=== PATIENT | female | born 1985 | race Caucasian/White ===

== ENCOUNTER 2017-06-09 15:48 | Emergency (ER) | payer BC ==
[~2017-06-09] VITALS: Ht 175.3 cm; Wt 100.0 kg
[~2017-06-09 15:48] MED LIST: ALBU6.7H INH; DULO-31 PO; NORE-58 PO; TRAZ-146 PO
[2017-06-09] MEDS ORDERED: dexamethasone 4mg tablet PO ONE (18:45)
[2017-06-09] MEDS ORDERED: DEC4T PO (19:48)
[2017-06-09 19:57] VITALS: BP 130/88
== END 2017-06-09 19:58 | disposition home or self-care (01) ==
LOC: ER 15:50
DX: J06.9 Acute upper respiratory infection, unspecified (principal); I25.2 Old myocardial infarction; Z90.49 Acquired absence of other specified parts of digestive tract; Z98.890 Other specified postprocedural states; Z88.0 Allergy status to penicillin; Z88.2 Allergy status to sulfonamides; Z88.1 Allergy status to other antibiotic agents
CPT/HCPCS: 87502; 87503; 99284; J8540

== ENCOUNTER 2017-11-09 18:21 | Emergency (ER) | payer BC ==
[~2017-11-09] VITALS: Ht 597.6 cm; Wt 112.8 kg
[2017-11-09] MEDS ORDERED: DOXY100C43 PO (19:50)
[2017-11-09 19:58] VITALS: BP 133/80
[2017-11-13] MEDS ORDERED: PROC25SU31 RC (21:34)
== END 2017-11-09 20:01 | disposition home or self-care (01) ==
LOC: ER 18:22
DX: L03.311 Cellulitis of abdominal wall (principal); Z90.49 Acquired absence of other specified parts of digestive tract; Z98.890 Other specified postprocedural states; Z88.0 Allergy status to penicillin; Z91.040 Latex allergy status; Z88.1 Allergy status to other antibiotic agents; Z88.2 Allergy status to sulfonamides; Z79.899 Other long term (current) drug therapy
CPT/HCPCS: 99283

== ENCOUNTER 2017-11-11 07:15 | Emergency (ER) | payer BC ==
[~2017-11-11] VITALS: Ht 175.3 cm; Wt 111.3 kg
[~2017-11-11 07:15] MED LIST changes: +DOXY100C43 PO
[2017-11-11] MEDS ORDERED: LIDOcaine 1.5% w/epinephrine 1:200,000 5ml ampul IJ ONE (08:05)
[2017-11-11] MEDS ORDERED: vancomycin/NS 1 GM ADD-VANTAGE 250 ML IV ONE (08:05)
[2017-11-11] MEDS ORDERED: levoFLOXACIN-Levaquin 750MG/D5 150 ML IV ONE (08:05)
[2017-11-11] MEDS ORDERED: ondansetron/PF 4mg/2ml inj IV ONE (08:05)
[2017-11-11] MEDS ORDERED: normal saline 1000ML IV soln IVB ONE (08:05)
[2017-11-11 09:01] LABS: BASOPHILS % (AUTO) 0.3 % (0-1); EOSINOPHILS # (AUTO) 0.2 X10'3 (0-0.9); EOSINOPHILS % (AUTO) 2.4 % (0-6); HEMATOCRIT 34.2 % (35.0-45.0); HEMOGLOBIN 11.4 g/dl (12.0-16.0); LYMPHOCYTES # (AUTO) 1.6 X10'3 (1.1-4.8); LYMPHOCYTES % (AUTO) 17.1 % (21-51); MEAN CORPUSCULAR HEMOGLOBIN 27.5 PG (27.0-31.0); MEAN CORPUSCULAR HGB CONC 33.3 % (33.0-36.5); MEAN CORPUSCULAR VOLUME 82.6 FL (78-98); MEAN PLATELET VOLUME 7.7 FL (7.4-10.4); MONOCYTES # (AUTO) 0.5 X10'3 (0-0.9); MONOCYTES % (AUTO) 5.3 % (2-12); NEUTROPHILS # (AUTO) 6.9 X10'3 (1.8-7.7); NEUTROPHILS % (AUTO) 74.9 % (42-75); PLATELET COUNT 275 X10'3 (140-440); RED BLOOD COUNT 4.14 X10'6 (4.20-5.60); RED CELL DISTRIBUTION WIDTH 14.3 % (11.5-14.5); WHITE BLOOD COUNT 9.2 X10'3 (4.5-11.0)
[2017-11-11] MEDS: morphine 4 MG/ML inj SYRINge IV PRN ×2 (09:18→10:20)
[2017-11-11 09:28] LABS: ALANINE AMINOTRANSFERASE 26 U/L (12-78); ALBUMIN/GLOBULIN RATIO 0.7 (1.1-1.5); ALKALINE PHOSPHATASE 99 IU/L (46-116); ANION GAP 10 (8-16); ASPARTATE AMINO TRANSFERASE 13 U/L (10-37); BILIRUBIN,TOTAL 0.3 MG/DL (0.1-1.0); BLOOD UREA NITROGEN 12 MG/DL (7-18); BUN/CREATININE RATIO 14.6 (6.6-38.0); CALCIUM 8.6 MG/DL (8.5-10.1); CHLORIDE 107 MMOL/L (99-107); CREATININE 0.82 MG/DL (0.40-0.90); GLUCOSE 98 MG/DL (70-104); POTASSIUM 3.9 MMOL/L (3.5-5.1); SODIUM 140 MMOL/L (135-145); TOTAL CARBON DIOXIDE 23.3 MMOL/L (24-32); TOTAL PROTEIN 7.3 G/DL (6.4-8.2); eGFR 80 ML/MIN
[2017-11-11] MEDS ORDERED: morphine 4 MG/ML inj SYRINge IV ONE (10:25)
[2017-11-11] MEDS ORDERED: HYDR-565 PO (11:32)
[2017-11-11] MEDS ORDERED: RIFA300C4 PO (11:32)
[2017-11-11] MEDS ORDERED: HYDROcodone/acetaminophen 10/325mg tab PO ONE (11:35)
[2017-11-11 12:58] VITALS: BP 116/72
[2017-11-13] MEDS ORDERED: PROC25SU31 RC (21:34)
== END 2017-11-11 13:00 | disposition home or self-care (01) ==
LOC: ER 07:15
DX: L02.211 Cutaneous abscess of abdominal wall (principal); L03.311 Cellulitis of abdominal wall; Z90.49 Acquired absence of other specified parts of digestive tract; Z98.890 Other specified postprocedural states; Z90.89 Acquired absence of other organs; Z88.0 Allergy status to penicillin; Z88.2 Allergy status to sulfonamides; Z88.8 Allergy status to other drugs, medicaments and biological substances; Z91.040 Latex allergy status; Z79.899 Other long term (current) drug therapy
CPT/HCPCS: 10060; 36415; 80053; 83605; 84145; 85025; 87040; 96365; 96366; 96367; 96375; 96376; 99285; A6266; A6449; J1956; J2270; J2405; J3370; J3490; J7030

== ENCOUNTER 2018-03-11 13:45 | Emergency (ER) | payer MEDICAID, OTHER ==
[~2018-03-11] VITALS: Ht 175.3 cm; Wt 104.0 kg
[~2018-03-11 13:45] MED LIST changes: -DOXY100C43 PO; +RIFA300C4 PO; -TRAZ-146 PO; +TRAZ-219 PO
[2018-03-11 13:48] VITALS: BP 135/89
[2018-03-11] MEDS ORDERED: CLIN150C8 PO (14:31)
== END 2018-03-11 14:50 | disposition home or self-care (01) ==
LOC: ER 13:46
DX: J02.9 Acute pharyngitis, unspecified (principal); R13.10 Dysphagia, unspecified; H92.03 Otalgia, bilateral; Z90.49 Acquired absence of other specified parts of digestive tract; Z88.0 Allergy status to penicillin; Z88.2 Allergy status to sulfonamides; Z88.1 Allergy status to other antibiotic agents; Z91.040 Latex allergy status
CPT/HCPCS: 87880; 99283

== ENCOUNTER 2018-11-23 19:06 | Emergency (ER) | payer MEDICAID ==
[~2018-11-23] VITALS: Ht 175.3 cm; Wt 115.5 kg
[~2018-11-23 19:06] MED LIST changes: -ALBU6.7H INH; +ALBU6.7H9 INH; +CLIN150C8 PO
[2018-11-23 19:44] LABS: BASOPHILS # (AUTO) 0.1 X10'3 (0-0.2); BASOPHILS % (AUTO) 0.8 % (0-1); EOSINOPHILS # (AUTO) 0.1 X10'3 (0-0.9); EOSINOPHILS % (AUTO) 1.3 % (0-6); HEMATOCRIT 36.2 % (35.0-45.0); HEMOGLOBIN 12.1 g/dl (12.0-16.0); LYMPHOCYTES # (AUTO) 1.8 X10'3 (1.1-4.8); LYMPHOCYTES % (AUTO) 21.2 % (21-51); MEAN CORPUSCULAR HEMOGLOBIN 27.6 PG (27.0-31.0); MEAN CORPUSCULAR HGB CONC 33.4 g/dL (33.0-36.5); MEAN CORPUSCULAR VOLUME 82.5 FL (78-98); MEAN PLATELET VOLUME 8.1 FL (7.4-10.4); MONOCYTES # (AUTO) 0.4 X10'3 (0-0.9); MONOCYTES % (AUTO) 4.6 % (2-12); NEUTROPHILS # (AUTO) 6.3 X10'3 (1.8-7.7); NEUTROPHILS % (AUTO) 72.1 % (42-75); PLATELET COUNT 319 X10'3 (140-440); RED BLOOD COUNT 4.39 X10'6 (4.20-5.60); RED CELL DISTRIBUTION WIDTH 14.7 % (11.5-14.5); WHITE BLOOD COUNT 8.7 X10'3 (4.5-11.0)
[2018-11-23 19:56] LABS: ALANINE AMINOTRANSFERASE 35 U/L (12-78); ALBUMIN 3.7 G/DL (3.4-5.0); ALBUMIN/GLOBULIN RATIO 0.9 (1.1-1.5); ALKALINE PHOSPHATASE 98 IU/L (46-116); ANION GAP 11 (8-16); ASPARTATE AMINO TRANSFERASE 21 U/L (10-37); BILIRUBIN,TOTAL 0.6 MG/DL (0.1-1.0); BLOOD UREA NITROGEN 13 MG/DL (7-18); BUN/CREATININE RATIO 13.3 (6.6-38.0); CALCIUM 9.1 MG/DL (8.5-10.1); CHLORIDE 112 MMOL/L (99-107); CREATININE 0.98 MG/DL (0.40-0.90); GLUCOSE 91 MG/DL (70-104); POTASSIUM 3.9 MMOL/L (3.5-5.1); SODIUM 145 MMOL/L (135-145); TOTAL CARBON DIOXIDE 21.8 MMOL/L (24-32); TOTAL PROTEIN 7.7 G/DL (6.4-8.2); eGFR 65 ML/MIN
--- NOTE | 2018-11-23 20:00 | NUR ---
The patient is a 33 year old female who presented with a friend/patient advocate 2nd to having suicidal thoughts with a plan to overdose "and drive off a earlene" She reports prior dx of Depression, anxiety, PTSD and BPD. She is a client of [facility] and has had numerous med trials on antidepressants but currently is not taking any medications. She lives with her mother and 12 year old brother. She has been on SDI for anxiety/stress. Reports current stressors is financial and recent ending of a friendship. She is alert, oriented. Psychotic symptoms are not endorced and none were evident during the assessment.
[2018-11-23 20:06] LABS: ETHANOL < 0.010 GM/DL (0.0-0.010)
[2018-11-23 20:27] LABS: URINE HCG NEGATIVE (NEG)
[2018-11-23 20:32] LABS: CLARITY,URINE CLEAR (Clear); COLOR,URINE YELLOW (Yellow); GLUCOSE, URINE NEGATIVE (Neg); KETONES,URINE TRACE mg/dl (Neg); LEUKOCYTE ESTERASE ,URINE NEGATIVE (Neg); NITRITES, URINE NEGATIVE (Neg); OCCULT BLOOD,URINE TRACE-INTACT (Neg); PH,URINE 5.5 (4.8-8.0); PROTEIN,URINE NEGATIVE (Neg); UROBILINOGEN,URINE 0.2 E.U/dL (0.2-1.0)
[2018-11-23 20:34] LABS: UA COLLECTION TYPE VOIDED
[2018-11-23 20:36] LABS: URINE AMPHETAMINE SCREEN NEGATIVE (Neg); URINE BARBITUATE SCREEN NEGATIVE (Neg); URINE BENZODIAZEPINES SCREEN NEGATIVE (Neg); URINE CANNABINOID SCREEN NEGATIVE (Neg); URINE COCAINE SCREEN NEGATIVE (Neg); URINE METHADONE SCREEN NEGATIVE (Neg); URINE OPIATE SCREEN NEGATIVE (Neg); URINE PHENCYCLIDINE SCREEN NEGATIVE (Neg)
[2018-11-23 20:38] LABS: FINE GRANULAR CAST 0-3 /LPF (NEGATIVE); MUCUS STRANDS FEW /LPF (Neg); SQUAMOUS EPITHELIAL CELL,UR MODERATE /LPF (FEW)
[2018-11-23 20:40] LABS: BACTERIA,URINE 1+ /HPF (Neg); RBC,URINE 0-2 /HPF (0-2)
[2018-11-23 20:41] LABS: WBC CLUMPS,URINE FEW /HPF (NEGATIVE)
--- NOTE | 2018-11-23 20:43 | NUR ---
Patrizia Ramsey Patient advocate/friend [phone]
--- NOTE | 2018-11-23 21:34 | NUR ---
The patient is resting on her bed. She is tearful but cooperative.
[2018-11-23] MEDS ORDERED: temazepam 15mg capsule PO ONE (22:15)
[2018-11-23] MEDS: acetaminophen 325mg tablet PO PRN (22:26)
--- NOTE | 2018-11-24 00:04 | NUR ---
[facility] has seen the patient and placed her on a 5150 hold. She appears to be asleep at this time.
--- NOTE | 2018-11-24 02:02 | NUR ---
The patient appears to be sleeping
--- NOTE | 2018-11-24 04:46 | NUR ---
The patient appears to be asleep
[2018-11-24 05:42] VITALS: BP 121/71
--- NOTE | 2018-11-24 10:12 | NUR ---
pt is quietly sitting on side of bed
--- NOTE | 2018-11-24 10:54 | NUR ---
[facility] ([facility]) CALLED FOR INTAKE REPORT. STATES THEY WILL CALL BACK FOR MORE QUESTIONS OR IF PATIENT IS ACCEPTED.
--- NOTE | 2018-11-24 12:03 | NUR ---
pt went to bathroom
[2018-11-24] MEDS ORDERED: LORazepam 1 MG tablet PO ONE (12:05)
[2018-11-24] MEDS: acetaminophen 325mg tablet PO PRN (12:16)
--- NOTE | 2018-11-24 12:32 | NUR ---
C/O HEADACHE WITH NAUSEA. MEDICATED WITH TYLENOL FOR WALL AND ATIVAN FOR ANXIETY. RESTING IN BED.
--- NOTE | 2018-11-24 13:15 | NUR ---
PT IN BATHROOM
--- NOTE | 2018-11-24 13:30 | NUR ---
PT SITTING IN BED CRYING
--- NOTE | 2018-11-24 13:41 | NUR ---
[facility] worker is at bedside with pt
--- NOTE | 2018-11-24 13:43 | NUR ---
PIERCE ([facility]) IS TALKING WITH THE PT BECAUSE THE PT IS FEELING ANXIOUS AND IS ASKING FOR MORE MEDS. SHE IS DISCUSSING THE PLAN AND THE MEDICATION PROCESS WITH THE PT.
--- NOTE | 2018-11-24 14:09 | NUR ---
PT IS SITTING QUIETLY, EATING LUNCH.
--- NOTE | 2018-11-24 15:11 | NUR ---
PATIENT IS ASLEEP.
--- NOTE | 2018-11-24 15:53 | NUR ---
PT APPEARS TO BE SLEEPING
== END 2018-11-24 16:13 ==
LOC: ER 19:07
DX: R45.851 Suicidal ideations (principal); F41.9 Anxiety disorder, unspecified; Z90.49 Acquired absence of other specified parts of digestive tract; Z98.890 Other specified postprocedural states; Z90.721 Acquired absence of ovaries, unilateral; Z88.0 Allergy status to penicillin; Z88.2 Allergy status to sulfonamides; Z91.040 Latex allergy status; Z88.1 Allergy status to other antibiotic agents; Z79.899 Other long term (current) drug therapy
CPT/HCPCS: 36415; 80053; 80305; 80320; 81001; 81025; 84443; 85025; 99285

== ENCOUNTER 2018-12-16 08:01 | Emergency (ER) | payer MEDICAID ==
[~2018-12-16] VITALS: Ht 175.3 cm; Wt 105.0 kg
[2018-12-16] MEDS ORDERED: ondansetron/PF 4mg/2ml inj IV ONE ×2 (08:30→10:00)
[2018-12-16] MEDS ORDERED: normal saline 1000ML IV soln IVB ONE (08:30)
[2018-12-16 08:55] LABS: BASOPHILS # (AUTO) 0.1 X10'3 (0-0.2); BASOPHILS % (AUTO) 0.7 % (0-1); EOSINOPHILS # (AUTO) 0.1 X10'3 (0-0.9); EOSINOPHILS % (AUTO) 0.7 % (0-6); HEMATOCRIT 38.3 % (35.0-45.0); HEMOGLOBIN 12.7 g/dl (12.0-16.0); LYMPHOCYTES # (AUTO) 2.3 X10'3 (1.1-4.8); LYMPHOCYTES % (AUTO) 24.5 % (21-51); MEAN CORPUSCULAR HEMOGLOBIN 27.3 PG (27.0-31.0); MEAN CORPUSCULAR HGB CONC 33.1 g/dL (33.0-36.5); MEAN CORPUSCULAR VOLUME 82.7 FL (78-98); MEAN PLATELET VOLUME 7.8 FL (7.4-10.4); MONOCYTES # (AUTO) 0.5 X10'3 (0-0.9); MONOCYTES % (AUTO) 5.1 % (2-12); NEUTROPHILS # (AUTO) 6.5 X10'3 (1.8-7.7); PLATELET COUNT 375 X10'3 (140-440); RED BLOOD COUNT 4.64 X10'6 (4.20-5.60); RED CELL DISTRIBUTION WIDTH 15.4 % (11.5-14.5); WHITE BLOOD COUNT 9.4 X10'3 (4.5-11.0)
[2018-12-16 09:08] LABS: ALANINE AMINOTRANSFERASE 52 U/L (12-78); ALBUMIN 3.9 G/DL (3.4-5.0); ALKALINE PHOSPHATASE 99 IU/L (46-116); ANION GAP 11 (8-16); ASPARTATE AMINO TRANSFERASE 23 U/L (10-37); BILIRUBIN,TOTAL 0.4 MG/DL (0.1-1.0); BLOOD UREA NITROGEN 13 MG/DL (7-18); BUN/CREATININE RATIO 14.8 (6.6-38.0); CALCIUM 8.8 MG/DL (8.5-10.1); CHLORIDE 108 MMOL/L (99-107); CREATININE 0.88 MG/DL (0.40-0.90); GLUCOSE 99 MG/DL (70-104); POTASSIUM 3.8 MMOL/L (3.5-5.1); SODIUM 142 MMOL/L (135-145); TOTAL CARBON DIOXIDE 22.9 MMOL/L (24-32); TOTAL PROTEIN 7.9 G/DL (6.4-8.2); eGFR 73 ML/MIN
[2018-12-16] MEDS ORDERED: ONDA4TAB6 PO (09:21)
[2018-12-16 09:25] LABS: LIPASE 196 U/L (73-393)
[2018-12-16] MEDS ORDERED: diphenhydrAMINE 50 mg/ml inj IV ONE (10:00)
[2018-12-16 10:55] VITALS: BP 106/53
== END 2018-12-16 10:57 | disposition home or self-care (01) ==
LOC: ER 08:02
DX: R10.12 Left upper quadrant pain (principal); R11.2 Nausea with vomiting, unspecified; F41.9 Anxiety disorder, unspecified; F32.9 Major depressive disorder, single episode, unspecified; Z90.49 Acquired absence of other specified parts of digestive tract; Z98.890 Other specified postprocedural states; Z88.0 Allergy status to penicillin; Z91.040 Latex allergy status; Z88.2 Allergy status to sulfonamides; Z79.899 Other long term (current) drug therapy; Z88.1 Allergy status to other antibiotic agents
CPT/HCPCS: 36415; 80053; 83690; 85025; 96374; 96375; 96376; 99283; J1200; J2405; J7030

== ENCOUNTER 2019-06-03 18:30 | Emergency (ER) | payer MEDICAID ==
[~2019-06-03] VITALS: Ht 175.3 cm; Wt 109.1 kg
[~2019-06-03 18:30] MED LIST changes: -ALBU6.7H9 INH; -CLIN150C8 PO; -DULO-31 PO; -NORE-58 PO; +ONDA4TAB6 PO; -RIFA300C4 PO; -TRAZ-219 PO
[2019-06-03 18:35] VITALS: BP 156/108
--- NOTE | 2019-06-03 19:01 | NUR ---
updated plan of care positioned pt for comfort ice pack applied to the right shoulder,
[2019-06-03] MEDS ORDERED: ondansetron 4mg rapidly disintigrating tab PO ONE (19:20)
[2019-06-03] MEDS ORDERED: HYDROcodone/acetaminophen 5mg/325mg tablet PO ONE (19:20)
[2019-06-03] MEDS ORDERED: TRAM50TA2 PO (19:22)
== END 2019-06-03 19:30 | disposition home or self-care (01) ==
LOC: ER 18:30
DX: M25.511 Pain in right shoulder (principal); Z90.49 Acquired absence of other specified parts of digestive tract; Z98.890 Other specified postprocedural states; Z88.0 Allergy status to penicillin; Z91.040 Latex allergy status
CPT/HCPCS: 99283

== ENCOUNTER 2019-07-08 15:20 | Emergency (ER) | payer MEDICAID ==
[~2019-07-08] VITALS: Ht 177.8 cm; Wt 113.6 kg
[2019-07-08 15:26] VITALS: BP 131/59
[2019-07-08] MEDS ORDERED: dexamethasone sod phosphate 10mg/ml inj IV STA (16:01)
[2019-07-08] MEDS ORDERED: proCHLORperazine 10 MG/2 ml inj IV ONE (16:05)
[2019-07-08] MEDS ORDERED: normal saline 1000ML IV soln IVB ONE (16:05)
[2019-07-08] MEDS ORDERED: ketorolac tromethamine 15mg/ml inj. IV ONE (16:05)
[2019-07-08] MEDS ORDERED: diphenhydrAMINE 50 mg/ml inj IV ONE (16:05)
[2019-07-08] MEDS ORDERED: ketorolac tromethamine 15mg/ml inj. IM ONE (16:35)
[2019-07-08] MEDS ORDERED: diphenhydrAMINE 50 mg/ml inj IM ONE (16:40)
[2019-07-08] MEDS ORDERED: dexamethasone 4mg tablet PO ONE (16:40)
[2019-07-08] MEDS ORDERED: proCHLORperazine 10 MG/2 ml inj IM ONE (16:50)
[2019-07-08] MEDS ORDERED: dexamethasone sod phosphate 10mg/ml inj PO ONE (16:50)
[2019-07-08 18:11] LABS: CLARITY,URINE SLIGHTLY CLOUDY (Clear); COLOR,URINE YELLOW (Yellow); GLUCOSE, URINE NEGATIVE (Neg); KETONES,URINE NEGATIVE (Neg); LEUKOCYTE ESTERASE ,URINE NEGATIVE (Neg); NITRITES, URINE NEGATIVE (Neg); OCCULT BLOOD,URINE SMALL (Neg); PROTEIN,URINE NEGATIVE (Neg); UROBILINOGEN,URINE 0.2 E.U/dL (0.2-1.0)
[2019-07-08 18:12] LABS: UA COLLECTION TYPE CLN CATCH MIDSTREAM; URINE HCG NEGATIVE (NEG)
[2019-07-08 18:18] LABS: BACTERIA,URINE 2+ /HPF (Neg); MUCUS STRANDS FEW /LPF (Neg); SQUAMOUS EPITHELIAL CELL,UR MODERATE /LPF (FEW)
[2019-07-08 18:19] LABS: WBC CLUMPS,URINE FEW /HPF (NEGATIVE)
== END 2019-07-08 18:32 | disposition home or self-care (01) ==
LOC: ER 15:21
DX: R51 Headache (principal); Z90.49 Acquired absence of other specified parts of digestive tract; Z98.890 Other specified postprocedural states; Z88.0 Allergy status to penicillin; Z91.040 Latex allergy status
CPT/HCPCS: 81001; 81025; 87088; 96372; 99284; J0780; J1100; J1200; J1885

== ENCOUNTER 2019-07-17 18:09 | Inpatient (IN) | payer MEDICAID ==
[~2019-07-17] VITALS: Ht 175.3 cm; Wt 115.0 kg
[2019-07-17] MEDS ORDERED: ipratropium/albuterol 3ml nebule NEB ONE (18:50)
[2019-07-17] MEDS ORDERED: normal saline 1000ML IV soln IVB ONE (18:50)
[2019-07-17] MEDS ORDERED: methylPREDNISolone sod succ 125mg/2ml vial IV ONE (18:50)
[2019-07-17] MEDS ORDERED: acetaminophen 325mg tablet PO ONE ×2 (18:50→22:40)
--- NOTE | 2019-07-17 18:56 | NUR ---
lab at bedside . resp at bedside . notified tech of ekg
--- NOTE | 2019-07-17 19:04 | NUR ---
ATTEMPT AN IV START . PT A DIFFICULT STICK MEDICATED WITH TYLENOL RESP AWAITING TX AT BEDSIDE . EKG ALSO AWAITING AT BEDSIDE
[2019-07-17] MEDS ORDERED: normal saline 1000ML IV soln IV ONE (19:15)
[2019-07-17 19:23] LABS: BASOPHILS # (AUTO) 0.1 X10'3 (0-0.2); BASOPHILS % (AUTO) 1.1 % (0-1); EOSINOPHILS # (AUTO) 0.3 X10'3 (0-0.9); EOSINOPHILS % (AUTO) 2.1 % (0-6); HEMATOCRIT 36.4 % (35.0-45.0); HEMOGLOBIN 12.2 g/dl (12.0-16.0); LYMPHOCYTES # (AUTO) 4.2 X10'3 (1.1-4.8); LYMPHOCYTES % (AUTO) 35.1 % (21-51); MEAN CORPUSCULAR HEMOGLOBIN 27.8 PG (27.0-31.0); MEAN CORPUSCULAR HGB CONC 33.5 g/dL (33.0-36.5); MEAN PLATELET VOLUME 7.8 FL (7.4-10.4); MONOCYTES # (AUTO) 0.7 X10'3 (0-0.9); MONOCYTES % (AUTO) 5.6 % (2-12); NEUTROPHILS # (AUTO) 6.6 X10'3 (1.8-7.7); NEUTROPHILS % (AUTO) 56.1 % (42-75); PLATELET COUNT 370 X10'3 (140-440); RED BLOOD COUNT 4.39 X10'6 (4.20-5.60); RED CELL DISTRIBUTION WIDTH 15.3 % (11.5-14.5); WHITE BLOOD COUNT 11.8 X10'3 (4.5-11.0)
[2019-07-17 19:37] LABS: ALANINE AMINOTRANSFERASE 26 U/L (12-78); ALBUMIN 3.4 G/DL (3.4-5.0); ALBUMIN/GLOBULIN RATIO 0.8 (1.1-1.5); ALKALINE PHOSPHATASE 101 IU/L (46-116); ANION GAP 10 (8-16); ASPARTATE AMINO TRANSFERASE 19 U/L (10-37); BILIRUBIN,TOTAL 0.3 MG/DL (0.1-1.0); BLOOD UREA NITROGEN 11 MG/DL (7-18); BUN/CREATININE RATIO 11.3 (6.6-38.0); CALCIUM 9.1 MG/DL (8.5-10.1); CHLORIDE 109 MMOL/L (99-107); CREATININE 0.97 MG/DL (0.40-0.90); GLUCOSE 105 MG/DL (70-104); POTASSIUM 3.9 MMOL/L (3.5-5.1); SODIUM 143 MMOL/L (135-145); TOTAL CARBON DIOXIDE 23.9 MMOL/L (24-32); TOTAL PROTEIN 7.8 G/DL (6.4-8.2); eGFR 65 ML/MIN
[2019-07-17] MEDS ORDERED: CefTRIAXone 2gm/D5W 50ml 50 ML IV ONE (19:50)
[2019-07-17] MEDS ORDERED: clindamycin phosphate inj 600 MG in normal saline 50ml IV soln 50 ML IV ONE (20:00)
--- NOTE | 2019-07-17 21:18 | NUR ---
PT CONCERNED THAT SHE MIGHT HAVE THE FLU ASKING TO BE SWABBED NOTIFIED MORALES NYE WHO VERBALIZED THAT THE PATIENT DOES NOT MEET THE CRITIREA AND HE WILL COME SPEAK TO THE PATIEBT,
[2019-07-17] MEDS ORDERED: TRAM50TA2 PO (21:52)
[2019-07-17] MEDS ORDERED: ZOLPIDEM PO (21:52)
[2019-07-17] MEDS ORDERED: PROMETHAZINE PO (21:52)
[2019-07-17] MEDS ORDERED: ONDA4TAB6 PO (21:54)
[2019-07-17 22:36] LABS: HCG SERUM QL NEGATIVE
[2019-07-17] MEDS ORDERED: potassium CL 10mEq/100ml bag 100 ML IV PRN ×2 (23:00)
[2019-07-17] MEDS ORDERED: mag hydrox/Alum hydrox/simeth 30ml oral suspension PO PRN (23:00)
[2019-07-17] MEDS ORDERED: acetaminophen 325mg tablet PO PRN ×2 (23:00)
[2019-07-17] MEDS ORDERED: potassium Cl 20 mEq SR tablet PO PRN ×2 (23:00)
[2019-07-17] MEDS ORDERED: HYDROcodone/acetaminophen 10/325mg tab PO PRN (23:00)
[2019-07-17] MEDS ORDERED: magnesium hydroxide 30ml (MOM) UD suspension PO PRN (23:00)
[2019-07-17] MEDS ORDERED: HYDROcodone/acetaminophen 5mg/325mg tablet PO PRN (23:00)
[2019-07-18] VITALS: BP 155/83
[2019-07-18] MEDS: normal saline 1000ml 1,000 ML IV SCH ×2 (00:15→09:01)
[2019-07-18] MEDS: ipratropium/albuterol 3ml nebule NEB PRN ×2 (00:33→20:38)
[2019-07-18] MEDS: clindamycin 600mg/D5W 50ml 50 ML IV SCH ×3 (01:31→13:32)
[2019-07-18] MEDS: ondansetron/PF 4mg/2ml inj IV PRN ×3 (01:54→13:35)
[2019-07-18] MEDS ORDERED: guaiFENesin/codeine phos 10ml UD oral syrup PO PRN (03:05)
[2019-07-18] MEDS ORDERED: ALBUTEROL INHALER 1 PUFF/90 MCG INHALER IH PRN (03:15)
[2019-07-18] MEDS ORDERED: morphine 2 MG/ML inj. syringe IV PRN ×2 (03:20→07:35)
--- NOTE | 2019-07-18 03:30 | NUR ---
Per lab, patient specimen for COVID-19 will be obtained from the flu swab and results can take up to 4 to 6 days. Patient informed. Patient began having left sided chest pain radiating to the back with HR of 150. Received orders for EKG, place on telemetry, troponin x1, albuterol inhaler with aerochamber, robitussin AC and morphine if robitussin AC ineffective. EKG reviewed by .
[2019-07-18 04:12] LABS: BASOPHILS % (AUTO) 0.3 % (0-1); EOSINOPHILS % (AUTO) 0 % (0-6); HEMATOCRIT 33.1 % (35.0-45.0); HEMOGLOBIN 11.1 g/dl (12.0-16.0); LYMPHOCYTES # (AUTO) 0.8 X10'3 (1.1-4.8); LYMPHOCYTES % (AUTO) 7.9 % (21-51); MEAN CORPUSCULAR HGB CONC 33.5 g/dL (33.0-36.5); MEAN CORPUSCULAR VOLUME 83.4 FL (78-98); MEAN PLATELET VOLUME 8.1 FL (7.4-10.4); MONOCYTES # (AUTO) 0.1 X10'3 (0-0.9); MONOCYTES % (AUTO) 0.5 % (2-12); NEUTROPHILS # (AUTO) 9.5 X10'3 (1.8-7.7); NEUTROPHILS % (AUTO) 91.3 % (42-75); PLATELET COUNT 322 X10'3 (140-440); RED BLOOD COUNT 3.97 X10'6 (4.20-5.60); RED CELL DISTRIBUTION WIDTH 15.2 % (11.5-14.5); WHITE BLOOD COUNT 10.4 X10'3 (4.5-11.0)
[2019-07-18 04:29] LABS: ALANINE AMINOTRANSFERASE 25 U/L (12-78); ALBUMIN/GLOBULIN RATIO 0.7 (1.1-1.5); ALKALINE PHOSPHATASE 89 IU/L (46-116); ANION GAP 15 (8-16); ASPARTATE AMINO TRANSFERASE 16 U/L (10-37); BILIRUBIN,TOTAL 0.3 MG/DL (0.1-1.0); BLOOD UREA NITROGEN 10 MG/DL (7-18); BUN/CREATININE RATIO 8.4 (6.6-38.0); CALCIUM 8.1 MG/DL (8.5-10.1); CHLORIDE 109 MMOL/L (99-107); CREATININE 1.19 MG/DL (0.40-0.90); GLUCOSE 194 MG/DL (70-104); POTASSIUM 3.7 MMOL/L (3.5-5.1); SODIUM 143 MMOL/L (135-145); TOTAL PROTEIN 7.1 G/DL (6.4-8.2); TROPONIN I < 0.04 NG/ML (0.0-0.05); eGFR 52 ML/MIN
[2019-07-18 05:44] LABS: URINE HCG NEGATIVE (NEG)
[2019-07-18 05:51] LABS: CLARITY,URINE CLOUDY (Clear); COLOR,URINE YELLOW (Yellow); GLUCOSE, URINE 100 mg/dl (Neg); KETONES,URINE NEGATIVE (Neg); LEUKOCYTE ESTERASE ,URINE NEGATIVE (Neg); NITRITES, URINE NEGATIVE (Neg); OCCULT BLOOD,URINE SMALL (Neg); PH,URINE 5.5 (4.8-8.0); PROTEIN,URINE NEGATIVE (Neg); UROBILINOGEN,URINE 0.2 E.U/dL (0.2-1.0)
[2019-07-18 05:55] LABS: UA COLLECTION TYPE VOIDED
[2019-07-18 05:57] LABS: HYALINE CASTS 0-3 /LPF (NEGATIVE); MUCUS STRANDS MODERATE /LPF (Neg); SQUAMOUS EPITHELIAL CELL,UR MODERATE /LPF (FEW)
[2019-07-18 05:58] LABS: BACTERIA,URINE 2+ /HPF (Neg); RBC,URINE 0-2 /HPF (0-2); WBC,URINE 0-4 /HPF (0-4)
--- NOTE | 2019-07-18 06:33 | NUR ---
Problems reprioritized. Patient report given, questions answered & plan of care reviewed with ARELIS Owusu.
[2019-07-18] MEDS: K and/or MAG REPLACEMENT MC SCH ×2 (06:45→20:00)
[2019-07-18 07:12] VITALS: BP 110/57
[2019-07-18] MEDS: budesonide 0.5mg/2ml UD nebule IH SCH ×2 (07:12→20:38)
[2019-07-18] MEDS: traMADol 50MG tablet PO SCH ×3 (07:51→20:07)
[2019-07-18] MEDS: enoxaparin 40mg/0.4ml syringe SQ SCH (07:52)
[2019-07-18] MEDS ORDERED: CefTRIAXone/D5W-Rocephin 1gm 50 ML IV SCH (08:00)
[2019-07-18] MEDS: ketorolac trometh. 30mg/ml inj. IV PRN ×2 (10:27→17:45)
[2019-07-18 10:43] VITALS: BP 101/65
[2019-07-18] MEDS: metoclopramide 5 mg/ml inj IV PRN (17:40)
--- NOTE | 2019-07-18 18:00 | NUR ---
Patient in room DONTE 341. I have received report from Francoise INFANTE and had the opportunity to ask questions and assume patient care.
--- NOTE | 2019-07-18 18:10 | NUR ---
Problems reprioritized. Patient report given, questions answered & plan of care reviewed with MIKE INFANTE.
[2019-07-18] MEDS: lactobacillus rhamnosus 10,000 MMU CELLS/CAPSULE PO SCH (19:28)
[2019-07-18 19:56] VITALS: BP 109/63
[2019-07-18] MEDS: levoFLOXACIN-Levaquin 750MG/D5 150 ML IV SCH (20:07)
[2019-07-19] VITALS: BP 128/52
[2019-07-19] MEDS: metoclopramide 5 mg/ml inj IV PRN ×2 (00:34→07:42)
[2019-07-19 05:27] LABS: D-DIMER 0.27 MG/L FEU (0-0.50)
[2019-07-19 05:45] LABS: ALANINE AMINOTRANSFERASE 23 U/L (12-78); ALBUMIN 2.7 G/DL (3.4-5.0); ALBUMIN/GLOBULIN RATIO 0.8 (1.1-1.5); ALKALINE PHOSPHATASE 72 IU/L (46-116); ANION GAP 9 (8-16); ASPARTATE AMINO TRANSFERASE 14 U/L (10-37); BILIRUBIN,TOTAL 0.2 MG/DL (0.1-1.0); BLOOD UREA NITROGEN 18 MG/DL (7-18); BUN/CREATININE RATIO 19.8 (6.6-38.0); CHLORIDE 113 MMOL/L (99-107); CREATININE 0.91 MG/DL (0.40-0.90); GLUCOSE 90 MG/DL (70-104); POTASSIUM 3.9 MMOL/L (3.5-5.1); SODIUM 145 MMOL/L (135-145); TOTAL CARBON DIOXIDE 23.2 MMOL/L (24-32); TOTAL PROTEIN 6.1 G/DL (6.4-8.2); eGFR 70 ML/MIN
--- NOTE | 2019-07-19 06:20 | NUR ---
Problems reprioritized. Patient report given, questions answered & plan of care reviewed with Gianna INFANTE.
--- NOTE | 2019-07-19 06:40 | NUR ---
Patient in room DONTE 341. I have received report from Heather INFANTE and had the opportunity to ask questions and assume patient care.
[2019-07-19 07:00] VITALS: BP 128/70
[2019-07-19] MEDS: traMADol 50MG tablet PO SCH (07:48)
[2019-07-19] MEDS: lactobacillus rhamnosus 10,000 MMU CELLS/CAPSULE PO SCH (07:48)
[2019-07-19] MEDS: enoxaparin 40mg/0.4ml syringe SQ SCH (07:49)
[2019-07-19] MEDS: levoFLOXACIN-Levaquin 750MG/D5 150 ML IV SCH (07:53)
[2019-07-19] MEDS: K and/or MAG REPLACEMENT MC SCH (08:00)
[2019-07-19 08:05] LABS: BASOPHILS # (AUTO) 0.1 X10'3 (0-0.2); BASOPHILS % (AUTO) 0.6 % (0-1); EOSINOPHILS # (AUTO) 0.2 X10'3 (0-0.9); EOSINOPHILS % (AUTO) 1.8 % (0-6); HEMATOCRIT 29.9 % (35.0-45.0); HEMOGLOBIN 10.1 g/dl (12.0-16.0); LYMPHOCYTES # (AUTO) 2.9 X10'3 (1.1-4.8); LYMPHOCYTES % (AUTO) 32.3 % (21-51); MEAN CORPUSCULAR HEMOGLOBIN 28.1 PG (27.0-31.0); MEAN CORPUSCULAR HGB CONC 33.8 g/dL (33.0-36.5); MEAN CORPUSCULAR VOLUME 83.2 FL (78-98); MEAN PLATELET VOLUME 8.2 FL (7.4-10.4); MONOCYTES # (AUTO) 0.4 X10'3 (0-0.9); MONOCYTES % (AUTO) 4.6 % (2-12); NEUTROPHILS # (AUTO) 5.4 X10'3 (1.8-7.7); NEUTROPHILS % (AUTO) 60.7 % (42-75); PLATELET COUNT 269 X10'3 (140-440); RED CELL DISTRIBUTION WIDTH 15.1 % (11.5-14.5); WHITE BLOOD COUNT 8.8 X10'3 (4.5-11.0)
[2019-07-19] MEDS: budesonide 0.5mg/2ml UD nebule IH SCH (08:29)
[2019-07-19] MEDS ORDERED: furosemide 20 MG/2 ML vial IV SCH ×2 (08:45→20:00)
[2019-07-19 11:00] VITALS: BP 116/70
[2019-07-19] MEDS ORDERED: LEVO750T21 PO (11:05)
--- NOTE | 2019-07-19 12:52 | NUR ---
Patient stable for discharge home today. All discharge instructions given to patient ans questions answered. Prescription information given to patient. IV out and all belongings sent with patient.
== END 2019-07-19 12:14 | disposition home or self-care (01) | DRG 723 ==
LOC: ER 18:10 → ED HOLD 22:56 → UNDOADMIN 23:07 → ED HOLD 23:07 → EDBEDREQ 23:38 → ED HOLD 07-18 00:06 → SUR 3N 07-18 00:06
PROVIDERS: ADMIT Family Medicine; ATTEND Internal Medicine
DX: B34.9 Viral infection, unspecified (principal); J18.9 Pneumonia, unspecified organism; E66.9 Obesity, unspecified; F41.8 Other specified anxiety disorders; Z82.49 Family history of ischemic heart disease and other diseases of the circulatory system; Z90.5 Acquired absence of kidney; Z90.721 Acquired absence of ovaries, unilateral; Z68.37 Body mass index [BMI] 37.0-37.9, adult; Z88.0 Allergy status to penicillin; Z88.2 Allergy status to sulfonamides; Z88.1 Allergy status to other antibiotic agents; Z91.040 Latex allergy status; Z90.49 Acquired absence of other specified parts of digestive tract; Z79.899 Other long term (current) drug therapy
CPT/HCPCS: 36415; 71045; 80053; 81001; 81025; 83605; 83880; 84145; 84484; 84703; 85025; 85379; 87040; 87077; 87081; 87186; 87502; 87503; 93005; 94640; 94760; 96365; 96375; 99285; G0378; J0696; J1650; J1885; J1956; J2270; J2405; J2765; J2930; J3490; J7030; J7626

== ENCOUNTER 2019-07-19 21:57 | Emergency (ER) | payer MEDICAID ==
[~2019-07-19] VITALS: Ht 175.3 cm; Wt 109.0 kg
[~2019-07-19 21:57] MED LIST changes: +LEVO750T21 PO; +PROMETHAZINE PO; +TRAM50TA2 PO; +ZOLPIDEM PO
[2019-07-19] MEDS ORDERED: ipratropium/albuterol 3ml nebule NEB ONE (22:35)
[2019-07-19] MEDS ORDERED: methylPREDNISolone sod succ 125mg/2ml vial IV ONE (22:35)
[2019-07-19] MEDS ORDERED: iohexol 350MG/ML 100ml bottle IV ONE (22:50)
--- NOTE | 2019-07-19 22:59 | NUR ---
RT PAGED FOR BREATHING TX
[2019-07-19 23:09] LABS: BASOPHILS # (AUTO) 0.2 X10'3 (0-0.2); BASOPHILS % (AUTO) 1.4 % (0-1); EOSINOPHILS # (AUTO) 0.3 X10'3 (0-0.9); EOSINOPHILS % (AUTO) 2.7 % (0-6); HEMOGLOBIN 11.9 g/dl (12.0-16.0); LYMPHOCYTES # (AUTO) 3.3 X10'3 (1.1-4.8); LYMPHOCYTES % (AUTO) 28.9 % (21-51); MEAN CORPUSCULAR HGB CONC 33.9 g/dL (33.0-36.5); MEAN CORPUSCULAR VOLUME 82.6 FL (78-98); MEAN PLATELET VOLUME 7.6 FL (7.4-10.4); MONOCYTES # (AUTO) 0.6 X10'3 (0-0.9); MONOCYTES % (AUTO) 5.1 % (2-12); NEUTROPHILS # (AUTO) 7.1 X10'3 (1.8-7.7); NEUTROPHILS % (AUTO) 61.9 % (42-75); PLATELET COUNT 326 X10'3 (140-440); RED BLOOD COUNT 4.24 X10'6 (4.20-5.60); RED CELL DISTRIBUTION WIDTH 15.4 % (11.5-14.5); WHITE BLOOD COUNT 11.5 X10'3 (4.5-11.0)
[2019-07-19 23:17] LABS: PARTIAL THROMBOPLASTIN TIME 27 SECONDS (22-32)
[2019-07-19 23:20] LABS: ALANINE AMINOTRANSFERASE 25 U/L (12-78); ALBUMIN/GLOBULIN RATIO 0.7 (1.1-1.5); ALKALINE PHOSPHATASE 96 IU/L (46-116); ANION GAP 9 (8-16); ASPARTATE AMINO TRANSFERASE 20 U/L (10-37); BILIRUBIN,TOTAL 0.3 MG/DL (0.1-1.0); BLOOD UREA NITROGEN 16 MG/DL (7-18); BUN/CREATININE RATIO 17.2 (6.6-38.0); CALCIUM 8.4 MG/DL (8.5-10.1); CHLORIDE 108 MMOL/L (99-107); CREATININE 0.93 MG/DL (0.40-0.90); GLUCOSE 94 MG/DL (70-104); POTASSIUM 3.5 MMOL/L (3.5-5.1); SODIUM 142 MMOL/L (135-145); TOTAL CARBON DIOXIDE 25.2 MMOL/L (24-32); TOTAL PROTEIN 7.1 G/DL (6.4-8.2); eGFR 69 ML/MIN
[2019-07-20 00:22] VITALS: BP 120/68
== END 2019-07-20 00:25 | disposition home or self-care (01) ==
LOC: ER 21:57
DX: J06.9 Acute upper respiratory infection, unspecified (principal); G89.29 Other chronic pain; F41.9 Anxiety disorder, unspecified; F32.9 Major depressive disorder, single episode, unspecified; Z90.49 Acquired absence of other specified parts of digestive tract; Z98.890 Other specified postprocedural states; Z88.0 Allergy status to penicillin; Z91.040 Latex allergy status; Z88.2 Allergy status to sulfonamides; Z88.1 Allergy status to other antibiotic agents; Z79.899 Other long term (current) drug therapy
CPT/HCPCS: 36415; 71045; 71275; 80053; 85025; 85610; 85730; 93005; 94640; 96374; 99285; J2930; Q9967; 94760

== ENCOUNTER 2019-08-25 09:11 | Emergency (ER) | payer MEDICAID ==
[~2019-08-25] VITALS: Ht 175.3 cm; Wt 109.1 kg
[~2019-08-25 09:11] MED LIST changes: -LEVO750T21 PO
[2019-08-25 09:12] VITALS: BP 156/60
[2019-08-25] MEDS ORDERED: azithromycin 250mg tablet PO ONE (09:50)
[2019-08-25] MEDS ORDERED: dexamethasone 4mg tablet PO ONE (09:50)
[2019-08-25] MEDS ORDERED: AZIT-21 PO (09:52)
== END 2019-08-25 10:10 | disposition home or self-care (01) ==
LOC: ER 09:12
DX: J02.9 Acute pharyngitis, unspecified (principal); G89.29 Other chronic pain; F41.9 Anxiety disorder, unspecified; F32.9 Major depressive disorder, single episode, unspecified; Z90.49 Acquired absence of other specified parts of digestive tract; Z98.890 Other specified postprocedural states; Z88.0 Allergy status to penicillin; Z91.040 Latex allergy status; Z88.2 Allergy status to sulfonamides; Z79.899 Other long term (current) drug therapy; Z90.721 Acquired absence of ovaries, unilateral
CPT/HCPCS: 99283

== ENCOUNTER 2019-09-14 15:02 | Emergency (ER) | payer MEDICAID ==
[~2019-09-14] VITALS: Ht 175.3 cm; Wt 104.5 kg
[2019-09-14 15:19] VITALS: BP 132/94
[2019-09-14] MEDS ORDERED: CEPH-572 PO (15:54)
== END 2019-09-14 16:05 | disposition home or self-care (01) ==
LOC: ER 15:03
DX: J02.9 Acute pharyngitis, unspecified (principal); R21 Rash and other nonspecific skin eruption; G89.29 Other chronic pain; F41.9 Anxiety disorder, unspecified; F32.9 Major depressive disorder, single episode, unspecified; Z90.49 Acquired absence of other specified parts of digestive tract; Z98.890 Other specified postprocedural states; Z90.721 Acquired absence of ovaries, unilateral; Z88.0 Allergy status to penicillin; Z91.040 Latex allergy status; Z88.2 Allergy status to sulfonamides; Z79.899 Other long term (current) drug therapy
CPT/HCPCS: 99283

== ENCOUNTER 2019-11-27 02:29 | Emergency (ER) | payer MEDICAID ==
[~2019-11-27] VITALS: Ht 175.3 cm; Wt 109.5 kg
[~2019-11-27 02:29] MED LIST changes: +CEPH-572 PO
[2019-11-27 03:20] LABS: BASOPHILS # (AUTO) 0.2 X10'3 (0-0.2); BASOPHILS % (AUTO) 1.7 % (0-1); EOSINOPHILS # (AUTO) 0.1 X10'3 (0-0.9); EOSINOPHILS % (AUTO) 1.2 % (0-6); HEMATOCRIT 38.5 % (35.0-45.0); HEMOGLOBIN 12.6 g/dl (12.0-16.0); LYMPHOCYTES # (AUTO) 2.7 X10'3 (1.1-4.8); LYMPHOCYTES % (AUTO) 26.5 % (21-51); MEAN CORPUSCULAR HGB CONC 32.7 g/dL (33.0-36.5); MEAN CORPUSCULAR VOLUME 85.4 FL (78-98); MEAN PLATELET VOLUME 8.7 FL (7.4-10.4); MONOCYTES # (AUTO) 0.4 X10'3 (0-0.9); MONOCYTES % (AUTO) 4.2 % (2-12); NEUTROPHILS # (AUTO) 6.7 X10'3 (1.8-7.7); NEUTROPHILS % (AUTO) 66.4 % (42-75); PLATELET COUNT 210 X10'3 (140-440); RED BLOOD COUNT 4.51 X10'6 (4.20-5.60); WHITE BLOOD COUNT 10.1 X10'3 (4.5-11.0)
[2019-11-27 03:26] LABS: CLARITY,URINE CLEAR (Clear); COLOR,URINE YELLOW (Yellow); GLUCOSE, URINE NEGATIVE (Neg); KETONES,URINE NEGATIVE (Neg); LEUKOCYTE ESTERASE ,URINE NEGATIVE (Neg); NITRITES, URINE NEGATIVE (Neg); OCCULT BLOOD,URINE MODERATE (Neg); PROTEIN,URINE NEGATIVE (Neg); UROBILINOGEN,URINE 0.2 E.U/dL (0.2-1.0)
[2019-11-27 03:27] LABS: URINE HCG NEGATIVE (NEG)
[2019-11-27 03:30] LABS: UA COLLECTION TYPE CLN CATCH MIDSTREAM
--- NOTE | 2019-11-27 03:30 | NUR ---
PT SITTING IN BED, NO NEEDS AT THIS TIME
[2019-11-27 03:31] LABS: ALANINE AMINOTRANSFERASE 76 U/L (12-78); ALBUMIN 3.4 G/DL (3.4-5.0); ALBUMIN/GLOBULIN RATIO 0.8 (1.1-1.5); ALKALINE PHOSPHATASE 92 IU/L (46-116); ANION GAP 12 (8-16); ASPARTATE AMINO TRANSFERASE 29 U/L (10-37); BILIRUBIN,TOTAL 0.3 MG/DL (0.1-1.0); BLOOD UREA NITROGEN 14 MG/DL (7-18); BUN/CREATININE RATIO 14.9 (6.6-38.0); CALCIUM 8.8 MG/DL (8.5-10.1); CHLORIDE 106 MMOL/L (99-107); CREATININE 0.94 MG/DL (0.40-0.90); GLUCOSE 100 MG/DL (70-104); SODIUM 140 MMOL/L (135-145); TOTAL PROTEIN 7.8 G/DL (6.4-8.2); eGFR 67 ML/MIN
[2019-11-27 03:31] LABS: BACTERIA,URINE 1+ /HPF (Neg); SQUAMOUS EPITHELIAL CELL,UR FEW /LPF (FEW); WBC,URINE 0-4 /HPF (0-4)
[2019-11-27 03:40] LABS: URINE AMPHETAMINE SCREEN NEGATIVE (Neg); URINE BARBITUATE SCREEN NEGATIVE (Neg); URINE BENZODIAZEPINES SCREEN NEGATIVE (Neg); URINE CANNABINOID SCREEN NEGATIVE (Neg); URINE COCAINE SCREEN NEGATIVE (Neg); URINE METHADONE SCREEN NEGATIVE (Neg); URINE OPIATE SCREEN NEGATIVE (Neg); URINE PHENCYCLIDINE SCREEN NEGATIVE (Neg)
[2019-11-27 03:42] LABS: ETHANOL < 0.010 GM/DL (0.0-0.010)
--- NOTE | 2019-11-27 04:30 | NUR ---
PT LAYING QUIETLY IN BED, NO NEEDS AT THIS TIME
--- NOTE | 2019-11-27 05:32 | NUR ---
PT REQUESTED BLANKET, LYING DOWN. RR EVEN AND UNLABORED, WILL CONTINUE TO MONITOR
--- NOTE | 2019-11-27 06:15 | NUR ---
PATIENT SLEEPING ON LEFT SIDE, NO SIGNS OF DISTRESS NOTED, WITHIN SITE OF STAFF AT ALL TIMES, WILL CONTINUE TO MONITOR.
--- NOTE | 2019-11-27 07:33 | NUR ---
PATIENT CONTINUES TO SLEEP, IS LAYING ON RIGHT SIDE AT THIS TIME, NO SIGNS OF DISTRESS NOTED, PATIENT WITHIN SITE OF STAFF AT ATLL TIMES.
--- NOTE | 2019-11-27 08:16 | NUR ---
PATIENT REQUESTS PMI TO BE CONFIDENTIAL INCLUDING PATIENT'S LOCATION. CN AKUA MADE AWARE, REGISTRATION MADE AWARE. PATIENT UP AT BEDSIDE TO EAT BREAKFAST, NO SIGNS OF DISTRESS NOTED.
--- NOTE | 2019-11-27 08:29 | NUR ---
PATIENT REFUSED TO EAT BREAKFAST, UP TO BATHROOM AND VOMITTED, DR ROSS MADE AWARE.
[2019-11-27] MEDS ORDERED: ondansetron 4mg rapidly disintigrating tab PO ONE (08:30)
--- NOTE | 2019-11-27 09:47 | NUR ---
PATIENT SLEEPING ON RIGHT SIDE, NO SIGNS OF DISTRESS NOTED, PATIENT WITHIN SITE OF STAFF AT ALL TIMES.
--- NOTE | 2019-11-27 10:15 | NUR ---
Patient resting, no signs of distress noted, patient within site by staff at all times.
--- NOTE | 2019-11-27 11:00 | NUR ---
Patient vomitting, will notify
[2019-11-27] MEDS ORDERED: metoclopramide 5 mg/ml inj IM ONE (11:20)
--- NOTE | 2019-11-27 12:09 | NUR ---
[facility] EVAL AT BEDSIDE DOING ASSESSMENT.WILL CONT TO MONITOR.
[2019-11-27] MEDS ORDERED: IBUP-1986 PO (12:23)
--- NOTE | 2019-11-27 12:48 | NUR ---
KATY EVAL AT BEDSIDE COMMUNICATING WITH PT.
[2019-11-27 13:57] VITALS: BP 110/75
--- NOTE | 2019-11-29 16:50 | NUR ---
PT WAS CALLED, NOTIFIED THAT AT DC SHE LEFT HER MEDICATIONS; AMITRIPTYLINE, MELOXICAM, CLONIDINE AND TRAZADONE PT STATED THE MEDICATION IS NOT LONGER BEING TAKEN AND THAT SHE DID NONT WANT TO TAKE THEM HOME, LEFT REQUESTING THAT THE MEDS BE DISPOSED OF. PT'S MEDS WERE PLACED IN MEDICATION DISPOSAL.
== END 2019-11-27 13:59 | disposition home or self-care (01) ==
LOC: EEVIPCON 02:29 → ER 02:29
DX: F43.21 Adjustment disorder with depressed mood (principal); R45.851 Suicidal ideations; G89.29 Other chronic pain; F41.9 Anxiety disorder, unspecified; Z90.49 Acquired absence of other specified parts of digestive tract; Z98.890 Other specified postprocedural states; Z88.0 Allergy status to penicillin; Z91.040 Latex allergy status; Z88.2 Allergy status to sulfonamides; Z88.1 Allergy status to other antibiotic agents; Z79.2 Long term (current) use of antibiotics; Z79.899 Other long term (current) drug therapy
CPT/HCPCS: 36415; 80053; 80305; 80320; 81001; 81025; 84443; 85025; 96372; 99283; J2765

== ENCOUNTER 2020-02-28 15:06 | Emergency (ER) | payer MEDICAID ==
[~2020-02-28] VITALS: Ht 175.3 cm; Wt 100.0 kg
[~2020-02-28 15:06] MED LIST changes: -CEPH-572 PO; +IBUP-1986 PO; -ONDA4TAB6 PO; -PROMETHAZINE PO; -TRAM50TA2 PO; -ZOLPIDEM PO
[2020-02-28 15:07] VITALS: BP 122/85
[2020-02-28] MEDS ORDERED: BENZ-16 PO (16:10)
[2020-02-28] MEDS ORDERED: PRED20TA PO (16:10)
[2020-02-28] MEDS ORDERED: AZIT-72 PO (16:10)
== END 2020-02-28 16:20 | disposition home or self-care (01) ==
LOC: ER 15:07
DX: J40 Bronchitis, not specified as acute or chronic (principal); R05 Cough; R07.89 Other chest pain; R50.9 Fever, unspecified; Z20.828 Contact with and (suspected) exposure to other viral communicable diseases; G89.29 Other chronic pain; F41.9 Anxiety disorder, unspecified; F32.9 Major depressive disorder, single episode, unspecified; Z90.49 Acquired absence of other specified parts of digestive tract; Z98.890 Other specified postprocedural states; Z88.0 Allergy status to penicillin; Z91.040 Latex allergy status; Z88.2 Allergy status to sulfonamides; Z88.1 Allergy status to other antibiotic agents; Z88.8 Allergy status to other drugs, medicaments and biological substances; Z79.2 Long term (current) use of antibiotics; Z79.899 Other long term (current) drug therapy
CPT/HCPCS: 36415; 71045; 87635; 99284

== ENCOUNTER 2020-03-18 16:12 | Emergency (ER) | payer MEDICAID ==
[~2020-03-18] VITALS: Ht 175.3 cm; Wt 100.0 kg
[2020-03-18] MEDS ORDERED: normal saline 1000ML IV soln IVB ONE ×2 (16:55→19:00)
[2020-03-18 17:35] LABS: BASOPHILS # (AUTO) 0.1 X10'3 (0-0.2); BASOPHILS % (AUTO) 0.8 % (0-1); EOSINOPHILS # (AUTO) 0.1 X10'3 (0-0.9); EOSINOPHILS % (AUTO) 0.5 % (0-6); HEMATOCRIT 38.7 % (35.0-45.0); HEMOGLOBIN 12.6 g/dl (12.0-16.0); LYMPHOCYTES # (AUTO) 4.3 X10'3 (1.1-4.8); LYMPHOCYTES % (AUTO) 25.3 % (21-51); MEAN CORPUSCULAR HEMOGLOBIN 27.7 PG (27.0-31.0); MEAN CORPUSCULAR HGB CONC 32.5 g/dL (33.0-36.5); MEAN CORPUSCULAR VOLUME 85.1 FL (78-98); MEAN PLATELET VOLUME 8.2 FL (7.4-10.4); MONOCYTES # (AUTO) 0.9 X10'3 (0-0.9); MONOCYTES % (AUTO) 5.1 % (2-12); NEUTROPHILS # (AUTO) 11.6 X10'3 (1.8-7.7); NEUTROPHILS % (AUTO) 68.3 % (42-75); PLATELET COUNT 373 X10'3 (140-440); RED BLOOD COUNT 4.55 X10'6 (4.20-5.60); RED CELL DISTRIBUTION WIDTH 15.8 % (11.5-14.5)
[2020-03-18 17:45] LABS: D-DIMER 0.33 MG/L FEU (0-0.50)
[2020-03-18 17:58] LABS: ALANINE AMINOTRANSFERASE 29 U/L (12-78); ALBUMIN 3.6 G/DL (3.4-5.0); ALBUMIN/GLOBULIN RATIO 0.9 (1.1-1.5); ALKALINE PHOSPHATASE 113 IU/L (46-116); ANION GAP 12 (8-16); ASPARTATE AMINO TRANSFERASE 10 U/L (10-37); BILIRUBIN,TOTAL 0.3 MG/DL (0.1-1.0); BLOOD UREA NITROGEN 16 MG/DL (7-18); BUN/CREATININE RATIO 13.8 (6.6-38.0); CALCIUM 8.7 MG/DL (8.5-10.1); CHLORIDE 105 MMOL/L (99-107); CREATININE 1.16 MG/DL (0.40-0.90); GLUCOSE 105 MG/DL (70-104); POTASSIUM 3.2 MMOL/L (3.5-5.1); SODIUM 140 MMOL/L (135-145); TOTAL CARBON DIOXIDE 23.5 MMOL/L (24-32); TOTAL PROTEIN 7.8 G/DL (6.4-8.2); eGFR 53 ML/MIN
[2020-03-18 18:08] LABS: C-REACTIVE PROTEIN 0.06 MG/DL (0.0-0.5); FERRITIN 27 NG/ML (8-252); LACTATE DEHYDROGENASE 143 U/L (81-234)
[2020-03-18] MEDS ORDERED: dexamethasone sod phosphate 10mg/ml inj IV STA (19:00)
[2020-03-18] MEDS ORDERED: ondansetron/PF 4mg/2ml inj IV ONE (19:35)
[2020-03-18] MEDS ORDERED: potassium Cl 20 mEq SR tablet PO STA (19:46)
[2020-03-18] MEDS ORDERED: PRED20TA PO (19:46)
[2020-03-18] MEDS ORDERED: ALBU8HFA PO (19:46)
[2020-03-18] MEDS ORDERED: DOXY100C43 PO (19:46)
[2020-03-18 20:37] VITALS: BP 112/74
[2020-03-18 20:51] LABS: URINE AMPHETAMINE SCREEN NEGATIVE (Neg); URINE BARBITUATE SCREEN NEGATIVE (Neg); URINE BENZODIAZEPINES SCREEN NEGATIVE (Neg); URINE CANNABINOID SCREEN NEGATIVE (Neg); URINE COCAINE SCREEN NEGATIVE (Neg); URINE METHADONE SCREEN NEGATIVE (Neg); URINE OPIATE SCREEN NEGATIVE (Neg); URINE PHENCYCLIDINE SCREEN NEGATIVE (Neg)
== END 2020-03-18 20:40 | disposition home or self-care (01) ==
LOC: ER 16:13
DX: B34.9 Viral infection, unspecified (principal); J20.9 Acute bronchitis, unspecified; J98.8 Other specified respiratory disorders; N28.9 Disorder of kidney and ureter, unspecified; E86.0 Dehydration; E87.6 Hypokalemia; R05 Cough; R06.02 Shortness of breath; R53.83 Other fatigue; Z20.828 Contact with and (suspected) exposure to other viral communicable diseases; G89.29 Other chronic pain; F41.9 Anxiety disorder, unspecified; F32.9 Major depressive disorder, single episode, unspecified; Z90.49 Acquired absence of other specified parts of digestive tract; Z98.890 Other specified postprocedural states; Z88.0 Allergy status to penicillin; Z91.040 Latex allergy status; Z88.2 Allergy status to sulfonamides; Z88.1 Allergy status to other antibiotic agents; Z79.2 Long term (current) use of antibiotics; Z79.899 Other long term (current) drug therapy
CPT/HCPCS: 36415; 71045; 80053; 80305; 82728; 83605; 83615; 83880; 84145; 84443; 84484; 85025; 85379; 85384; 86140; 87040; 87635; 93005; 96361; 96374; 96375; 99285; C9803; J1100; J2405; J7030

== ENCOUNTER 2020-08-06 16:03 | Emergency (ER) | payer MEDICAID ==
[~2020-08-06] VITALS: Ht 175.3 cm; Wt 109.1 kg
[2020-08-06] MEDS ORDERED: normal saline 1000ml 1,000 ML IV ONE (18:15)
[2020-08-06] MEDS ORDERED: proCHLORperazine 10 MG/2 ml inj IV ONE (18:25)
[2020-08-06] MEDS ORDERED: diazepam inj 5 MG/ML inj. IV ONE (18:25)
[2020-08-06] MEDS ORDERED: diphenhydrAMINE 50 mg/ml inj IV ONE (18:25)
[2020-08-06 18:58] LABS: URINE HCG NEGATIVE (NEG)
[2020-08-06] MEDS ORDERED: ketorolac tromethamine 15mg/ml inj. IV ONE (20:10)
[2020-08-06] MEDS ORDERED: ondansetron/PF 4mg/2ml inj IV ONE (20:10)
[2020-08-06 20:41] VITALS: BP 133/92
--- NOTE | 2020-08-06 21:32 | NUR ---
Left message for the patient to call me back in 20 minutes as she left the premises with an IV otherwise the [facility] department will be notified. Left her my phone number.
--- NOTE | 2020-08-06 21:37 | NUR ---
[facility] was notified that patient left with an IV in place.
== END 2020-08-06 21:41 | disposition left against medical advice (07) ==
LOC: ER 16:04
DX: R51.9 Headache, unspecified (principal); M79.18 Myalgia, other site; R53.83 Other fatigue; G89.29 Other chronic pain; K59.00 Constipation, unspecified; F41.9 Anxiety disorder, unspecified; F32.9 Major depressive disorder, single episode, unspecified; Z90.49 Acquired absence of other specified parts of digestive tract; Z98.890 Other specified postprocedural states; Z88.0 Allergy status to penicillin; Z88.2 Allergy status to sulfonamides; Z91.040 Latex allergy status; Z88.1 Allergy status to other antibiotic agents; Z79.899 Other long term (current) drug therapy
CPT/HCPCS: 70450; 76937; 81025; 96361; 96374; 96375; 99284; J0780; J1200; J1885; J2405; J3360; J7030

== ENCOUNTER 2020-10-09 20:39 | Emergency (ER) | payer MEDICAID ==
[~2020-10-09] VITALS: Ht 175.3 cm; Wt 109.0 kg
[2020-10-09 22:09] LABS: BASOPHILS # (AUTO) 0.1 X10'3 (0-0.2); BASOPHILS % (AUTO) 0.9 % (0-1); EOSINOPHILS # (AUTO) 0.3 X10'3 (0-0.9); HEMATOCRIT 37.6 % (35.0-45.0); HEMOGLOBIN 12.3 g/dl (12.0-16.0); LYMPHOCYTES # (AUTO) 3.6 X10'3 (1.1-4.8); LYMPHOCYTES % (AUTO) 27.5 % (21-51); MEAN CORPUSCULAR HEMOGLOBIN 27.5 PG (27.0-31.0); MEAN CORPUSCULAR HGB CONC 32.7 g/dL (33.0-36.5); MEAN CORPUSCULAR VOLUME 84.3 FL (78-98); MEAN PLATELET VOLUME 7.5 FL (7.4-10.4); MONOCYTES # (AUTO) 0.7 X10'3 (0-0.9); MONOCYTES % (AUTO) 5.4 % (2-12); NEUTROPHILS # (AUTO) 8.4 X10'3 (1.8-7.7); NEUTROPHILS % (AUTO) 64.2 % (42-75); PLATELET COUNT 377 X10'3 (140-440); RED BLOOD COUNT 4.46 X10'6 (4.20-5.60); RED CELL DISTRIBUTION WIDTH 14.7 % (11.5-14.5)
[2020-10-09 22:24] LABS: ALANINE AMINOTRANSFERASE 35 U/L (12-78); ALBUMIN 3.5 G/DL (3.4-5.0); ALBUMIN/GLOBULIN RATIO 0.8 (1.1-1.5); ALKALINE PHOSPHATASE 118 IU/L (46-116); ANION GAP 10 (8-16); ASPARTATE AMINO TRANSFERASE 14 U/L (10-37); BILIRUBIN,TOTAL 0.2 MG/DL (0.1-1.0); BLOOD UREA NITROGEN 19 MG/DL (7-18); BUN/CREATININE RATIO 20.4 (6.6-38.0); CALCIUM 8.7 MG/DL (8.5-10.1); CHLORIDE 106 MMOL/L (99-107); CREATININE 0.93 MG/DL (0.40-0.90); GLUCOSE 97 MG/DL (70-104); POTASSIUM 3.9 MMOL/L (3.5-5.1); SODIUM 140 MMOL/L (135-145); TOTAL CARBON DIOXIDE 23.7 MMOL/L (24-32); TOTAL PROTEIN 7.8 G/DL (6.4-8.2); eGFR 68 ML/MIN
[2020-10-09 22:34] LABS: TROPONIN I < 0.04 NG/ML (0.0-0.05)
[2020-10-10] MEDS ORDERED: normal saline 1000ML IV soln IVB ONE (00:10)
[2020-10-10] MEDS ORDERED: aspirin 81mg tab.chew PO ONE (00:10)
[2020-10-10] MEDS ORDERED: iohexol 350MG/ML 100ml bottle IV ONE (00:17)
[2020-10-10 01:09] VITALS: BP 135/78
[2020-10-10 01:33] LABS: C-REACTIVE PROTEIN 0.49 MG/DL (0.0-0.5); MAGNESIUM 2.4 MG/DL (1.5-2.4)
[2020-10-10 01:45] LABS: PARTIAL THROMBOPLASTIN TIME 27 SECONDS (22-32)
== END 2020-10-10 06:41 | disposition home or self-care (01) ==
LOC: ER 20:41
DX: R07.89 Other chest pain (principal); R00.2 Palpitations; R11.0 Nausea; R42 Dizziness and giddiness; R06.02 Shortness of breath; G89.29 Other chronic pain; F41.9 Anxiety disorder, unspecified; F32.9 Major depressive disorder, single episode, unspecified; Z90.49 Acquired absence of other specified parts of digestive tract; Z98.890 Other specified postprocedural states; Z88.0 Allergy status to penicillin; Z88.2 Allergy status to sulfonamides; Z88.1 Allergy status to other antibiotic agents; Z91.040 Latex allergy status; Z79.899 Other long term (current) drug therapy
CPT/HCPCS: 36415; 71045; 71275; 80053; 83735; 83880; 84484; 85025; 85610; 85651; 85730; 86140; 93005; 96360; 96361; 99285; J7030; Q9967

== ENCOUNTER 2020-11-11 19:44 | Emergency (ER) | payer MEDICAID ==
[~2020-11-11] VITALS: Ht 175.3 cm; Wt 118.5 kg
[2020-11-11 20:38] LABS: BASOPHILS # (AUTO) 0.1 X10'3 (0-0.2); EOSINOPHILS # (AUTO) 0.2 X10'3 (0-0.9); EOSINOPHILS % (AUTO) 2.7 % (0-6); HEMATOCRIT 37.4 % (35.0-45.0); HEMOGLOBIN 12.2 g/dl (12.0-16.0); LYMPHOCYTES # (AUTO) 2.1 X10'3 (1.1-4.8); LYMPHOCYTES % (AUTO) 29.7 % (21-51); MEAN CORPUSCULAR HEMOGLOBIN 27.8 PG (27.0-31.0); MEAN CORPUSCULAR HGB CONC 32.5 g/dL (33.0-36.5); MEAN CORPUSCULAR VOLUME 85.4 FL (78-98); MEAN PLATELET VOLUME 7.9 FL (7.4-10.4); MONOCYTES # (AUTO) 0.4 X10'3 (0-0.9); MONOCYTES % (AUTO) 5.5 % (2-12); NEUTROPHILS # (AUTO) 4.4 X10'3 (1.8-7.7); NEUTROPHILS % (AUTO) 61.1 % (42-75); PLATELET COUNT 328 X10'3 (140-440); RED BLOOD COUNT 4.38 X10'6 (4.20-5.60); RED CELL DISTRIBUTION WIDTH 14.8 % (11.5-14.5); WHITE BLOOD COUNT 7.2 X10'3 (4.5-11.0)
[2020-11-11 21:14] LABS: ALANINE AMINOTRANSFERASE 29 U/L (12-78); ALBUMIN 3.3 G/DL (3.4-5.0); ALBUMIN/GLOBULIN RATIO 0.8 (1.1-1.5); ALKALINE PHOSPHATASE 90 IU/L (46-116); ANION GAP 12 (8-16); ASPARTATE AMINO TRANSFERASE 16 U/L (10-37); BILIRUBIN,TOTAL 0.3 MG/DL (0.1-1.0); BLOOD UREA NITROGEN 12 MG/DL (7-18); CALCIUM 8.5 MG/DL (8.5-10.1); CHLORIDE 109 MMOL/L (99-107); GLUCOSE 93 MG/DL (70-104); POTASSIUM 3.5 MMOL/L (3.5-5.1); SODIUM 143 MMOL/L (135-145); TOTAL CARBON DIOXIDE 22.5 MMOL/L (24-32); TOTAL PROTEIN 7.5 G/DL (6.4-8.2); eGFR 62 ML/MIN
[2020-11-11 21:22] LABS: TROPONIN I < 0.04 NG/ML (0.0-0.05)
[2020-11-11] MEDS ORDERED: LORazepam 1 MG tablet PO ONE (22:20)
[2020-11-11 23:01] LABS: D-DIMER 0.63 MG/L FEU (0-0.50)
[2020-11-12 00:18] VITALS: BP 124/82
== END 2020-11-12 00:22 | disposition home or self-care (01) ==
LOC: ER 19:45
DX: R07.89 Other chest pain (principal); Z20.822 Contact with and (suspected) exposure to COVID-19; R06.02 Shortness of breath; R42 Dizziness and giddiness; R05 Cough; G89.29 Other chronic pain; F41.9 Anxiety disorder, unspecified; F32.9 Major depressive disorder, single episode, unspecified; Z90.49 Acquired absence of other specified parts of digestive tract; Z98.890 Other specified postprocedural states; Z88.0 Allergy status to penicillin; Z88.2 Allergy status to sulfonamides; Z88.1 Allergy status to other antibiotic agents; Z91.040 Latex allergy status; Z79.899 Other long term (current) drug therapy
CPT/HCPCS: 36415; 71045; 80053; 83880; 84484; 85025; 85379; 87635; 93005; 99285; C9803

== ENCOUNTER 2021-09-30 18:16 | Emergency (ER) | payer MEDICARE, MEDICAID ==
[~2021-09-30] VITALS: Ht 175.3 cm; Wt 118.1 kg
[~2021-09-30 18:16] MED LIST changes: +BAC10T PO; +HYDR-3686 PO; -IBUP-1986 PO; +OXYC1TAB17 PO; +PROM25TA14 PO; +TRAM50TA2 PO; +gabapentin capsule PO
[2021-09-30 19:29] LABS: BASOPHILS # (AUTO) 0.1 X10'3 (0-0.2); BASOPHILS % (AUTO) 0.9 % (0-1); EOSINOPHILS # (AUTO) 0.2 X10'3 (0-0.9); EOSINOPHILS % (AUTO) 2.9 % (0-6); HEMATOCRIT 37.7 % (35.0-45.0); HEMOGLOBIN 12.6 g/dl (12.0-16.0); LYMPHOCYTES # (AUTO) 2.1 X10'3 (1.1-4.8); LYMPHOCYTES % (AUTO) 29.3 % (21-51); MEAN CORPUSCULAR HGB CONC 33.4 g/dL (33.0-36.5); MEAN PLATELET VOLUME 8.2 FL (7.4-10.4); MONOCYTES # (AUTO) 0.4 X10'3 (0-0.9); MONOCYTES % (AUTO) 5.4 % (2-12); NEUTROPHILS # (AUTO) 4.5 X10'3 (1.8-7.7); NEUTROPHILS % (AUTO) 61.5 % (42-75); PLATELET COUNT 329 X10'3 (140-440); RED BLOOD COUNT 4.65 X10'6 (4.20-5.60); RED CELL DISTRIBUTION WIDTH 15.2 % (11.5-14.5); WHITE BLOOD COUNT 7.3 X10'3 (4.5-11.0)
[2021-09-30 19:38] LABS: ALANINE AMINOTRANSFERASE 30 U/L (12-78); ALBUMIN 3.7 G/DL (3.4-5.0); ALBUMIN/GLOBULIN RATIO 0.9 (1.1-1.5); ALKALINE PHOSPHATASE 91 IU/L (46-116); ANION GAP 11 (8-16); ASPARTATE AMINO TRANSFERASE 17 U/L (10-37); BILIRUBIN,TOTAL 0.4 MG/DL (0.1-1.0); BLOOD UREA NITROGEN 14 MG/DL (7-18); BUN/CREATININE RATIO 15.9 (6.6-38.0); CALCIUM 8.6 MG/DL (8.5-10.1); CHLORIDE 107 MMOL/L (99-107); CREATININE 0.88 MG/DL (0.40-0.90); GLUCOSE 93 MG/DL (70-104); LIPASE 215 U/L (73-393); POTASSIUM 3.8 MMOL/L (3.5-5.1); SODIUM 141 MMOL/L (135-145); TOTAL CARBON DIOXIDE 23.4 MMOL/L (24-32); TOTAL PROTEIN 7.9 G/DL (6.4-8.2); eGFR 72 ML/MIN
[2021-09-30 20:38] LABS: CLARITY,URINE CLEAR (Clear); COLOR,URINE YELLOW (Yellow); GLUCOSE, URINE NEGATIVE (Neg); KETONES,URINE NEGATIVE (Neg); LEUKOCYTE ESTERASE ,URINE NEGATIVE (Neg); NITRITES, URINE NEGATIVE (Neg); OCCULT BLOOD,URINE SMALL (Neg); PH,URINE 5.5 (4.8-8.0); PROTEIN,URINE NEGATIVE (Neg); UROBILINOGEN,URINE 0.2 E.U/dL (0.2-1.0)
[2021-09-30 20:39] LABS: URINE HCG NEGATIVE (NEG)
[2021-09-30 20:40] LABS: UA COLLECTION TYPE CLN CATCH MIDSTREAM
[2021-09-30 20:44] LABS: MUCUS STRANDS MODERATE /LPF (Neg); URINE AMPHETAMINE SCREEN NEGATIVE (Neg); URINE BARBITUATE SCREEN NEGATIVE (Neg); URINE BENZODIAZEPINES SCREEN NEGATIVE (Neg); URINE CANNABINOID SCREEN NEGATIVE (Neg); URINE COCAINE SCREEN NEGATIVE (Neg); URINE METHADONE SCREEN NEGATIVE (Neg); URINE OPIATE SCREEN NEGATIVE (Neg); URINE PHENCYCLIDINE SCREEN NEGATIVE (Neg)
[2021-09-30 20:45] LABS: BACTERIA,URINE FEW /HPF (Neg); SQUAMOUS EPITHELIAL CELL,UR FEW /LPF (FEW); WBC,URINE 0-4 /HPF (0-4)
[2021-09-30 20:46] LABS: HYALINE CASTS 0-3 /LPF (NEGATIVE)
[2021-09-30 21:03] VITALS: BP 110/72
== END 2021-09-30 21:06 | disposition home or self-care (01) ==
LOC: ER 18:17
DX: M54.50 Low back pain, unspecified (principal); N18.9 Chronic kidney disease, unspecified; G89.29 Other chronic pain; F41.9 Anxiety disorder, unspecified; F32.A Depression, unspecified; Z87.442 Personal history of urinary calculi; Z90.49 Acquired absence of other specified parts of digestive tract; Z98.890 Other specified postprocedural states; Z88.0 Allergy status to penicillin; Z91.040 Latex allergy status; Z88.2 Allergy status to sulfonamides; Z88.1 Allergy status to other antibiotic agents; Z79.899 Other long term (current) drug therapy
CPT/HCPCS: 36415; 80053; 80305; 81001; 81025; 83690; 85025; 99283

== ENCOUNTER 2021-10-31 21:34 | Emergency (ER) | payer MEDICARE, MEDICAID ==
[~2021-10-31] VITALS: Ht 175.3 cm; Wt 118.2 kg
[2021-10-31 23:59] VITALS: BP 136/83
== END 2021-11-01 00:01 | disposition home or self-care (01) ==
LOC: ER 21:35
DX: S91.111A Laceration without foreign body of right great toe without damage to nail, initial encounter (principal); M79.674 Pain in right toe(s); G89.29 Other chronic pain; F41.9 Anxiety disorder, unspecified; F32.A Depression, unspecified; N18.9 Chronic kidney disease, unspecified; Z87.442 Personal history of urinary calculi; Z90.49 Acquired absence of other specified parts of digestive tract; Z98.890 Other specified postprocedural states; Z88.0 Allergy status to penicillin; Z91.040 Latex allergy status; Z88.2 Allergy status to sulfonamides; Z88.1 Allergy status to other antibiotic agents; Z79.899 Other long term (current) drug therapy; W22.8XXA Striking against or struck by other objects, initial encounter; Y93.89 Activity, other specified; Y92.89 Other specified places as the place of occurrence of the external cause; Y99.8 Other external cause status
CPT/HCPCS: 99281; J7030; A6449

== ENCOUNTER 2023-06-06 13:26 | Emergency (ER) | payer MEDICARE, MEDICAID ==
[~2023-06-06] VITALS: Ht 175.3 cm; Wt 118.2 kg
[~2023-06-06 13:26] MED LIST changes: -BAC10T PO; +ESZO2TAB31 PO; -HYDR-3686 PO; +OMEP20CA16 PO; -OXYC1TAB17 PO; +PRED10TA PO; -PROM25TA14 PO; -gabapentin capsule PO
[2023-06-06 14:44] LABS: BASOPHILS # (AUTO) 0.1 X10'3 (0-0.2); BASOPHILS % (AUTO) 0.9 % (0-1); EOSINOPHILS # (AUTO) 0.3 X10'3 (0-0.9); HEMATOCRIT 33.7 % (35.0-45.0); LYMPHOCYTES # (AUTO) 2.1 X10'3 (1.1-4.8); LYMPHOCYTES % (AUTO) 23.7 % (21-51); MEAN CORPUSCULAR HEMOGLOBIN 25.1 PG (27.0-31.0); MEAN CORPUSCULAR HGB CONC 32.6 g/dL (33.0-36.5); MEAN PLATELET VOLUME 7.3 FL (7.4-10.4); MONOCYTES # (AUTO) 0.5 X10'3 (0-0.9); MONOCYTES % (AUTO) 5.4 % (2-12); NEUTROPHILS # (AUTO) 5.8 X10'3 (1.8-7.7); PLATELET COUNT 388 X10'3 (140-440); RED BLOOD COUNT 4.38 X10'6 (4.20-5.60); RED CELL DISTRIBUTION WIDTH 16.5 % (11.5-14.5); WHITE BLOOD COUNT 8.8 X10'3 (4.5-11.0)
[2023-06-06 14:50] LABS: ALBUMIN 3.2 G/DL (3.4-5.0); AMYLASE 70 U/L (25-115); ANION GAP 9 (8-16); BLOOD UREA NITROGEN 19 MG/DL (7-18); CALCIUM 8.6 MG/DL (8.5-10.1); CHLORIDE 109 MMOL/L (99-107); CREATININE 1.12 MG/DL (0.40-0.90); GLUCOSE 97 MG/DL (70-104); LIPASE 86 U/L (16-77); POTASSIUM 3.9 MMOL/L (3.5-5.1); SODIUM 142 MMOL/L (135-145); TOTAL CARBON DIOXIDE 23.6 MMOL/L (24-32); eCRCL 70 ML/MIN; eGFR 54 ML/MIN
[2023-06-06 16:11] LABS: BILIRUBIN,URINE NEGATIVE (Neg); CLARITY,URINE SLIGHTLY CLOUDY (Clear); COLOR,URINE YELLOW (Yellow); GLUCOSE, URINE NEGATIVE (Neg); KETONES,URINE TRACE mg/dl (Neg); LEUKOCYTE ESTERASE ,URINE NEGATIVE (Neg); NITRITES, URINE NEGATIVE (Neg); OCCULT BLOOD,URINE TRACE-INTACT (Neg); PH,URINE 5.5 (4.8-8.0); PROTEIN,URINE NEGATIVE (Neg); UROBILINOGEN,URINE 0.2 E.U/dL (0.2-1.0)
[2023-06-06 16:25] LABS: UA COLLECTION TYPE CLN CATCH MIDSTREAM; URINE HCG NEGATIVE (NEG)
[2023-06-06 16:29] LABS: RBC,URINE 0-2 /HPF (0-2)
[2023-06-06 16:30] LABS: BACTERIA,URINE FEW /HPF (Neg); SQUAMOUS EPITHELIAL CELL,UR MANY /LPF (FEW)
[2023-06-06 16:32] LABS: MUCUS STRANDS MANY /LPF (Neg); URIC ACID CRYSTALS FEW /HPF (NEGATIVE)
[2023-06-06] MEDS ORDERED: CefTRIAXone 1000mg IM Kit (w/lidocaine diluent) IM ONE (17:50)
[2023-06-06] MEDS ORDERED: ketorolac trometh inj. 60 MG/2 ML VIAL IM ONE (17:50)
[2023-06-06] MEDS ORDERED: CEFD300C3 PO (17:50)
[2023-06-06 18:25] VITALS: BP 130/85; PULSE 103; RESP 16; TEMP 98.2; O2SAT 96
== END 2023-06-06 18:29 | disposition home or self-care (01) ==
LOC: ER 13:27
DX: N39.0 Urinary tract infection, site not specified (principal); N18.9 Chronic kidney disease, unspecified; Z88.0 Allergy status to penicillin; Z91.040 Latex allergy status; Z88.2 Allergy status to sulfonamides; Z91.041 Radiographic dye allergy status; Z79.899 Other long term (current) drug therapy; Z90.49 Acquired absence of other specified parts of digestive tract
CPT/HCPCS: 36415; 80048; 81001; 81025; 82150; 83690; 85025; 96372; 99284; J0696; J1885

== ENCOUNTER 2024-03-07 22:41 | Emergency (ER) | payer MEDICARE, MEDICAID ==
[~2024-03-07] VITALS: Ht 175.3 cm; Wt 109.1 kg
[2024-03-07 22:44] VITALS: TEMP 98.2
[2024-03-07 23:09] LABS: BASOPHILS # (AUTO) 0.1 X10'3 (0-0.2); BASOPHILS % (AUTO) 1.2 % (0-1); EOSINOPHILS # (AUTO) 0.1 X10'3 (0-0.9); EOSINOPHILS % (AUTO) 1.6 % (0-6); HEMATOCRIT 31.8 % (35.0-45.0); HEMOGLOBIN 10.2 g/dl (12.0-16.0); LYMPHOCYTES % (AUTO) 45.6 % (21-51); MEAN CORPUSCULAR HEMOGLOBIN 24.8 PG (27.0-31.0); MEAN CORPUSCULAR VOLUME 77.4 FL (78-98); MEAN PLATELET VOLUME 7.8 FL (7.4-10.4); MONOCYTES # (AUTO) 0.4 X10'3 (0-0.9); MONOCYTES % (AUTO) 4.4 % (2-12); NEUTROPHILS # (AUTO) 4.1 X10'3 (1.8-7.7); NEUTROPHILS % (AUTO) 47.2 % (42-75); PLATELET COUNT 407 X10'3 (140-440); RED BLOOD COUNT 4.11 X10'6 (4.20-5.60); RED CELL DISTRIBUTION WIDTH 16.5 % (11.5-14.5); WHITE BLOOD COUNT 8.7 X10'3 (4.5-11.0)
[2024-03-07 23:21] LABS: ALANINE AMINOTRANSFERASE 64 U/L (12-78); ALBUMIN/GLOBULIN RATIO 0.8 (1.1-1.5); ALKALINE PHOSPHATASE 105 IU/L (46-116); ANION GAP 9 (8-16); ASPARTATE AMINO TRANSFERASE 23 U/L (10-37); BILIRUBIN,TOTAL 0.2 MG/DL (0.1-1.0); BLOOD UREA NITROGEN 13 MG/DL (7-18); BUN/CREATININE RATIO 13.8 (10.0-20.0); CALCIUM 8.2 MG/DL (8.5-10.1); CHLORIDE 111 MMOL/L (99-107); CREATININE 0.94 MG/DL (0.40-0.90); GLUCOSE 103 MG/DL (70-104); POTASSIUM 3.7 MMOL/L (3.5-5.1); SODIUM 145 MMOL/L (135-145); TOTAL CARBON DIOXIDE 24.7 MMOL/L (24-32); TOTAL PROTEIN 6.9 G/DL (6.4-8.2); eCRCL 83 ML/MIN; eGFR 66 ML/MIN
[2024-03-07 23:28] LABS: PRO BRAIN NATRIURETIC PEPTIDE 174 PG/ML (0-125)
[2024-03-08] MEDS ORDERED: iohexol 300mg/ml 100ml inj. ONE (01:12)
[2024-03-08] MEDS: normal saline 1000ML IV soln IVB ONE (02:33)
[2024-03-08] MEDS: ibuprofen tablet 400 MG TABLET PO ONE (02:37)
[2024-03-08] MEDS: ketorolac trometh 15mg/ml vial 15 MG/ML ML IV ONE (03:48)
[2024-03-08 04:12] LABS: BILIRUBIN,URINE NEGATIVE (Neg); CLARITY,URINE CLEAR (Clear); COLOR,URINE YELLOW (Yellow); GLUCOSE, URINE NEGATIVE (Neg); KETONES,URINE NEGATIVE (Neg); LEUKOCYTE ESTERASE ,URINE NEGATIVE (Neg); NITRITES, URINE NEGATIVE (Neg); OCCULT BLOOD,URINE LARGE (Neg); PH,URINE 5.5 (4.8-8.0); PROTEIN,URINE NEGATIVE (Neg); UROBILINOGEN,URINE 0.2 E.U/dL (0.2-1.0)
[2024-03-08 04:14] LABS: UA COLLECTION TYPE CLN CATCH MIDSTREAM
[2024-03-08 04:21] LABS: BACTERIA,URINE 1+ /HPF (Neg); MUCUS STRANDS FEW /LPF (Neg); RBC,URINE NONE SEEN /HPF (0-2); SQUAMOUS EPITHELIAL CELL,UR MODERATE /LPF (FEW)
[2024-03-08 04:35] VITALS: BP 107/77; PULSE 84; O2SAT 99
[2024-03-08 04:38] VITALS: RESP 16
== END 2024-03-08 04:39 | disposition home or self-care (01) ==
LOC: ER 22:42
DX: G89.18 Other acute postprocedural pain (principal); R10.84 Generalized abdominal pain; N13.2 Hydronephrosis with renal and ureteral calculous obstruction; N18.9 Chronic kidney disease, unspecified; G89.29 Other chronic pain; I21.9 Acute myocardial infarction, unspecified; Z88.0 Allergy status to penicillin; Z80.0 Family history of malignant neoplasm of digestive organs; Z88.1 Allergy status to other antibiotic agents; Z88.2 Allergy status to sulfonamides; Z88.8 Allergy status to other drugs, medicaments and biological substances; Z79.899 Other long term (current) drug therapy; Z90.721 Acquired absence of ovaries, unilateral; Z90.49 Acquired absence of other specified parts of digestive tract; Z90.79 Acquired absence of other genital organ(s)
CPT/HCPCS: 36415; 71045; 74177; 80053; 81001; 83880; 84484; 85025; 87088; 93005; 96361; 96374; 99285; J1885; J7030; Q9967

== ENCOUNTER 2024-05-15 16:21 | Emergency (ER) | payer MEDICARE, MEDICAID ==
[~2024-05-15] VITALS: Ht 175.3 cm; Wt 100.9 kg
[2024-05-15 16:26] VITALS: TEMP 98
[2024-05-15 17:24] LABS: BASOPHILS # (AUTO) 0.1 X10'3 (0-0.2); BASOPHILS % (AUTO) 1.1 % (0-1); EOSINOPHILS # (AUTO) 0.3 X10'3 (0-0.9); EOSINOPHILS % (AUTO) 3.5 % (0-6); HEMOGLOBIN 12.6 g/dl (12.0-16.0); LYMPHOCYTES # (AUTO) 2.4 X10'3 (1.1-4.8); LYMPHOCYTES % (AUTO) 31.2 % (21-51); MEAN CORPUSCULAR HEMOGLOBIN 25.9 PG (27.0-31.0); MEAN CORPUSCULAR HGB CONC 33.1 g/dL (33.0-36.5); MEAN CORPUSCULAR VOLUME 78.2 FL (78-98); MEAN PLATELET VOLUME 8.1 FL (7.4-10.4); MONOCYTES # (AUTO) 0.4 X10'3 (0-0.9); NEUTROPHILS # (AUTO) 4.5 X10'3 (1.8-7.7); NEUTROPHILS % (AUTO) 59.2 % (42-75); PLATELET COUNT 354 X10'3 (140-440); RED BLOOD COUNT 4.85 X10'6 (4.20-5.60); RED CELL DISTRIBUTION WIDTH 17.4 % (11.5-14.5); WHITE BLOOD COUNT 7.5 X10'3 (4.5-11.0)
[2024-05-15 17:26] LABS: ALANINE AMINOTRANSFERASE 28 U/L (12-78); ALBUMIN 3.6 G/DL (3.4-5.0); ALBUMIN/GLOBULIN RATIO 0.8 (1.1-1.5); ALKALINE PHOSPHATASE 116 IU/L (46-116); ANION GAP 12 (8-16); ASPARTATE AMINO TRANSFERASE 11 U/L (10-37); BILIRUBIN,TOTAL 0.4 MG/DL (0.1-1.0); BLOOD UREA NITROGEN 14 MG/DL (7-18); BUN/CREATININE RATIO 14.3 (10.0-20.0); CALCIUM 9.1 MG/DL (8.5-10.1); CHLORIDE 107 MMOL/L (99-107); CREATININE 0.98 MG/DL (0.40-0.90); LIPASE 63 U/L (16-77); POTASSIUM 3.9 MMOL/L (3.5-5.1); SODIUM 141 MMOL/L (135-145); TOTAL CARBON DIOXIDE 22.4 MMOL/L (24-32); TOTAL PROTEIN 7.9 G/DL (6.4-8.2); eCRCL 80 ML/MIN; eGFR 63 ML/MIN
[2024-05-15 17:26] LABS: BILIRUBIN,URINE NEGATIVE (Neg); CLARITY,URINE SLIGHTLY CLOUDY (Clear); COLOR,URINE YELLOW (Yellow); GLUCOSE, URINE NEGATIVE (Neg); KETONES,URINE TRACE mg/dl (Neg); LEUKOCYTE ESTERASE ,URINE SMALL (Neg); NITRITES, URINE NEGATIVE (Neg); OCCULT BLOOD,URINE NEGATIVE (Neg); PH,URINE 5.5 (4.8-8.0); PROTEIN,URINE NEGATIVE (Neg); UROBILINOGEN,URINE 0.2 E.U/dL (0.2-1.0)
[2024-05-15 17:31] LABS: UA COLLECTION TYPE VOIDED
[2024-05-15 17:36] LABS: SQUAMOUS EPITHELIAL CELL,UR MANY /LPF (FEW)
[2024-05-15 17:37] LABS: RBC,URINE 0-2 /HPF (0-2); WBC,URINE 0-4 /HPF (0-4)
[2024-05-15 17:38] LABS: BACTERIA,URINE 3+ /HPF (Neg)
[2024-05-15 17:40] LABS: CAL OXALATE CRYSTALS 4+ /HPF (NEGATIVE)
[2024-05-15 17:41] LABS: GLUCOSE 112 MG/DL (70-104)
[2024-05-15 17:56] LABS: URINE HCG NEGATIVE (NEG)
[2024-05-15] MEDS: ondansetron 4mg rapidly disintigrating tab PO ONE (20:17)
[2024-05-15] MEDS: ketorolac trometh 15mg/ml vial 15 MG/ML ML IM ONE (20:17)
[2024-05-15] MEDS: HYDROcodone/acetaminophen 5mg/325mg tablet PO ONE (20:23)
[2024-05-15] MEDS: acetaminophen 325mg tablet PO ONE (20:23)
[2024-05-15] MEDS: ketorolac trometh 30MG/ML vial 30 MG/ML VIAL IM ONE (20:25)
[2024-05-15] MEDS: orphenadrine citrate 60mg/2ml inj. IM ONE (21:57)
[2024-05-15] MEDS: fentaNYL/PF 50MCG/1 ML 2ML syringe IM ONE (21:58)
[2024-05-15 22:38] VITALS: BP 113/78; PULSE 109; RESP 15; O2SAT 98
== END 2024-05-15 22:39 | disposition home or self-care (01) ==
LOC: ER 16:21
DX: M54.50 Low back pain, unspecified (principal); N18.9 Chronic kidney disease, unspecified; G89.29 Other chronic pain; I21.9 Acute myocardial infarction, unspecified; Z88.0 Allergy status to penicillin; Z98.51 Tubal ligation status; Z91.040 Latex allergy status; Z88.2 Allergy status to sulfonamides; Z88.1 Allergy status to other antibiotic agents; Z88.8 Allergy status to other drugs, medicaments and biological substances; Z90.49 Acquired absence of other specified parts of digestive tract; Z90.721 Acquired absence of ovaries, unilateral
CPT/HCPCS: 36415; 80053; 81001; 81025; 83690; 85025; 96372; 99285; J1885; J2360; J3010; J7030

== ENCOUNTER 2024-08-19 16:54 | Emergency (ER) | payer MEDICARE, MEDICAID ==
[~2024-08-19] VITALS: Ht 175.3 cm; Wt 110.5 kg
[2024-08-19 17:29] VITALS: TEMP 98
[2024-08-19] MEDS: normal saline 1000ML IV soln IVB ONE (18:11)
[2024-08-19] MEDS: ketorolac trometh 30MG/ML vial 30 MG/ML VIAL IV ONE (18:11)
[2024-08-19] MEDS: ondansetron/PF 4mg/2ml inj IV ONE (18:11)
[2024-08-19 18:26] LABS: BASOPHILS % (AUTO) 0.1 % (0-1); EOSINOPHILS # (AUTO) 0.2 X10'3 (0-0.9); EOSINOPHILS % (AUTO) 2.7 % (0-6); HEMATOCRIT 34.4 % (35.0-45.0); HEMOGLOBIN 11.3 g/dl (12.0-16.0); LYMPHOCYTES # (AUTO) 2.2 X10'3 (1.1-4.8); MEAN CORPUSCULAR HEMOGLOBIN 25.8 PG (27.0-31.0); MEAN CORPUSCULAR HGB CONC 32.8 g/dL (33.0-36.5); MEAN CORPUSCULAR VOLUME 78.6 FL (78-98); MEAN PLATELET VOLUME 8.3 FL (7.4-10.4); MONOCYTES # (AUTO) 0.4 X10'3 (0-0.9); MONOCYTES % (AUTO) 5.6 % (2-12); NEUTROPHILS # (AUTO) 4.7 X10'3 (1.8-7.7); NEUTROPHILS % (AUTO) 62.6 % (42-75); PLATELET COUNT 302 X10'3 (140-440); RED BLOOD COUNT 4.38 X10'6 (4.20-5.60); WHITE BLOOD COUNT 7.5 X10'3 (4.5-11.0)
[2024-08-19 18:40] LABS: ALANINE AMINOTRANSFERASE 31 U/L (12-78); ALBUMIN 3.5 G/DL (3.4-5.0); ALBUMIN/GLOBULIN RATIO 0.9 (1.1-1.5); ALKALINE PHOSPHATASE 95 IU/L (46-116); ANION GAP 10 (8-16); ASPARTATE AMINO TRANSFERASE 18 U/L (10-37); BILIRUBIN,TOTAL 0.5 MG/DL (0.1-1.0); BLOOD UREA NITROGEN 15 MG/DL (7-18); BUN/CREATININE RATIO 16.3 (10.0-20.0); CALCIUM 8.8 MG/DL (8.5-10.1); CHLORIDE 111 MMOL/L (99-107); CREATININE 0.92 MG/DL (0.40-0.90); POTASSIUM 3.7 MMOL/L (3.5-5.1); SODIUM 144 MMOL/L (135-145); TOTAL CARBON DIOXIDE 22.9 MMOL/L (24-32); TOTAL PROTEIN 7.2 G/DL (6.4-8.2); eCRCL 85 ML/MIN; eGFR 68 ML/MIN
[2024-08-19 18:50] LABS: BETA HCG,QUANTITATIVE < 1.0 mIU/ml; GLUCOSE 93 MG/DL (70-104)
[2024-08-19] MEDS: phenazopyridine 100mg tablet PO ONE (19:26)
[2024-08-19] MEDS: proMETHazine 25mg tablet PO ONE (19:26)
[2024-08-19] MEDS: HYDROmorphone 1 mg/ml syringe IV ONE (19:28)
[2024-08-19 20:04] LABS: BILIRUBIN,URINE NEGATIVE (Neg); CLARITY,URINE SLIGHTLY CLOUDY (Clear); COLOR,URINE YELLOW (Yellow); GLUCOSE, URINE NEGATIVE (Neg); KETONES,URINE NEGATIVE (Neg); LEUKOCYTE ESTERASE ,URINE MODERATE (Neg); NITRITES, URINE NEGATIVE (Neg); OCCULT BLOOD,URINE LARGE (Neg); PH,URINE 6.5 (4.8-8.0); PROTEIN,URINE TRACE mg/dl (Neg); UROBILINOGEN,URINE 0.2 E.U/dL (0.2-1.0)
[2024-08-19 20:07] LABS: UA COLLECTION TYPE CLN CATCH MIDSTREAM
[2024-08-19 20:13] LABS: BACTERIA,URINE 1+ /HPF (Neg); MUCUS STRANDS FEW /LPF (Neg); RBC,URINE 20-50 /HPF (0-2); SQUAMOUS EPITHELIAL CELL,UR FEW /LPF (FEW)
[2024-08-19] MEDS ORDERED: CEPH-585 PO (20:23)
[2024-08-19] MEDS ORDERED: PER5325T PO (20:23)
[2024-08-19] MEDS: CefTRIAXone 2gm/D5W 50ml BAG 50 ML IV ONE (20:32)
[2024-08-19 21:13] VITALS: BP 147/80; PULSE 77; RESP 16; O2SAT 97
== END 2024-08-19 21:15 | disposition home or self-care (01) ==
LOC: ER 16:54
DX: N39.0 Urinary tract infection, site not specified (principal); N20.1 Calculus of ureter; N18.9 Chronic kidney disease, unspecified; F32.A Depression, unspecified; F41.9 Anxiety disorder, unspecified; Z87.442 Personal history of urinary calculi; Z88.0 Allergy status to penicillin; Z88.1 Allergy status to other antibiotic agents; Z88.2 Allergy status to sulfonamides; Z88.8 Allergy status to other drugs, medicaments and biological substances; Z90.49 Acquired absence of other specified parts of digestive tract; Z90.721 Acquired absence of ovaries, unilateral
CPT/HCPCS: 36415; 74176; 80053; 81001; 84702; 85025; 87088; 96361; 96365; 96375; 99285; J0696; J1171; J1885; J2405; J7030; Q0169

== ENCOUNTER 2025-03-06 14:57 | Emergency (ER) | payer MEDICARE, MEDICAID ==
[~2025-03-06] VITALS: Ht 175.3 cm; Wt 118.4 kg
[2025-03-06 15:21] LABS: LEUKOCYTE ESTERASE ,URINE NEGATIVE (Neg); NITRITES, URINE NEGATIVE (Neg); OCCULT BLOOD,URINE SMALL (Neg); URINE HCG NEGATIVE (NEG)
[2025-03-06 15:27] LABS: UA COLLECTION TYPE CLN CATCH MIDSTREAM
[2025-03-06 15:27] LABS: MEAN PLATELET VOLUME 7.7 FL (7.4-10.4); RED CELL DISTRIBUTION WIDTH 14.9 % (11.5-14.5)
[2025-03-06 15:31] LABS: CAL OXALATE CRYSTALS 2+ /HPF (NEGATIVE); URIC ACID CRYSTALS FEW /HPF (NEGATIVE)
[2025-03-06 15:33] LABS: MUCUS STRANDS FEW /LPF (Neg)
[2025-03-06 15:37] LABS: SQUAMOUS EPITHELIAL CELL,UR MODERATE /LPF (FEW)
[2025-03-06 15:46] LABS: CREATININE 0.80 MG/DL (0.40-0.90); TOTAL CARBON DIOXIDE 25.3 MMOL/L (24-32); eCRCL 97 ML/MIN; eGFR 79 ML/MIN
--- NOTE | 2025-03-06 18:07 | Physician Documentation ---
History of Present Illness ~ Chief Complaint: Flank Pain Stated Complaint: KIDNEY STONES Time Seen by MD: 18:06 Primary Medical Doctor: NILE POWELL Patient presents to the emergency room with chief complaint of dysuria and hematuria. She states she feels she may have been passing a kidney stone as she has been suffering from lower back pain the past couple of weeks in his history of multiple kidney stones. Symptoms became severe today therefore she came in to be evaluated. Medication Reconciliation Allergies: Coded Allergies: Penicillins (Verified Allergy, Severe, THROAT SWELLS, 03/06/25) latex (Verified Allergy, Mild, 03/06/25) pt gets rash from latex tape, per patient Sulfa (Sulfonamide Antibiotics) (Verified Allergy, Unknown, 03/06/25) erythromycin base (Verified Allergy, Unknown, 03/06/25) prochlorperazine (Verified Allergy, Unknown, 03/06/25) Scheduled Omeprazole (Omeprazole), 1 CAP PO DAILY, (Reported) Prednisone (Prednisone), 1 TAB PO DAILY, (Reported) Scheduled PRN Eszopiclone (Eszopiclone), 1 TAB PO HS PRN for sleep, (Reported) Tramadol Hcl (Tramadol Hcl), 1 TAB PO QID PRN for pain, (Reported) Past Medical History Past Medical History: Headache, Constipation, Chronic Kidney Disease, Kidney Stones, Chronic Back Pain, *PSYCH*, Anxiety, Depression Past Surgical History: cholecystectomy, orthopedic surgeries, other Other Past Surgical History: right oophorectomy Patient History: ([place]) Myocardial infarction MOTHER, , Cause: Colon CA, Onset:40's - 48 Alcohol Use: None Drug Use: none Lives with: Family Lives In: Home Occupation: employed Physical Exam Vital Signs: Temperature: 98.2, Source: Oral, Heart Rate: 80, Respiratory Rate: 20, BP: 120/81, Pulse Oximetry: 98, Weight: 118.400 Oxygen Flow Rate: 0 Progress Progress Note Called CT scan. Apparently CT scan was ordered with contrast and to the contrast infiltrated upon injection. That has concern for possible contrast sent into artery rather than vein. Vascular ultrasound ordered. Results/Orders Results/Orders Orders - JUANJOSE MONET MD Arterial (03/06/25 18:15) Completed Orders - JUANJOSE MONET MD Arterial (03/06/25 18:15) Hydrocodone/Apap 5/325mg Tab ([place] 5/32 (03/06/25 18:20) Ondansetron Disint. Tablet (Zofran Odt T (03/06/25 18:20) Ketorolac Trometh 30mg/Ml Vial (Toradol (03/06/25 18:25) Ketorolac Trometh 15mg/Ml Vial (Toradol (03/06/25 20:05) Medications Received in ER Medications (Trade) Dose Ordered Sig/Kike Route PRN Reason Start Time Stop Time Status Last Admin Dose Admin ([place] 5/325mg tablet) 2 tab ONCE ONCE PO 03/06/25 18:20 03/06/25 18:21 DC 03/06/25 19:23 2 TAB (Zofran ODT tablet) 4 mg ONCE ONCE PO 03/06/25 18:20 03/06/25 18:21 DC 03/06/25 19:22 4 MG (Toradol injection) 15 mg ONCE ONCE IV 03/06/25 20:05 03/06/25 20:07 DC 03/06/25 20:10 15 MG Vital Signs 03/06/25 03/06/25 03/06/25 03/06/25 14:58 16:11 17:20 19:18 Temp 98.2 Pulse 106 86 80 Resp 19 15 20 16 B/P (MAP) 151/97 131/81 (98) 120/81 (94) Pulse Ox 97 98 98 O2 Flow Rate 0 0 03/06/25 03/06/25 03/06/25 19:23 19:25 20:10 Pulse 92 Resp 16 14 14 B/P (MAP) 112/58 (76) Pulse Ox 98 O2 Flow Rate 0 Laboratory Tests Test 03/06/25 15:03 03/06/25 15:13 Urine Specimen Description Cln catch midstream Urine Color Yellow Urine Clarity Slightly cloudy Urine pH 5.5 Urine Specific [place] >=1.030 Urine Protein Negative Urine Glucose (UA) Negative Urine Ketones Negative Urine Occult Blood Small Urine Nitrite Negative Urine Bilirubin Negative Urine Urobilinogen 0.2 Urine Leukocyte Esterase Negative Urine RBC 0-2 Urine WBC 0-4 Urine Squamous Epithelial Cells Moderate Urine Calcium Oxalate Crystals 2+ Urine Uric Acid Crystals Few Urine Bacteria Few Urine Mucus Few Urine Culture Indicated Not ind Volume Urine Centrifuged 8 ml Urine HCG, Qualitative Negative Urine Comment Low volume White Blood Count 6.8 Red Blood Count 4.52 Hemoglobin 12.5 Hematocrit 37.8 Mean Corpuscular Volume 83.7 Mean Corpuscular Hemoglobin 27.7 Mean Corpuscular Hemoglobin Concent 33.1 Red Cell Distribution Width 14.9 H Platelet Count 357 Mean Platelet Volume 7.7 Neutrophils (%) (Auto) 57.5 Lymphocytes (%) (Auto) 30.6 Monocytes (%) (Auto) 6.4 Eosinophils (%) (Auto) 5.0 Basophils (%) (Auto) 0.5 Neutrophils # (Auto) 3.9 Lymphocytes # (Auto) 2.1 Monocytes # (Auto) 0.4 Eosinophils # (Auto) 0.3 Basophils # (Auto) 0.0 CBC Comment Sodium Level 143 Potassium Level 4.0 Chloride Level 110 H Carbon Dioxide Level 25.3 Anion Gap 8 Blood Urea Nitrogen 16 Creatinine 0.80 Estimated GFR/1.73 m2 79 BUN/Creatinine Ratio 20.0 Glucose Level 88 Calcium Level 8.7 Total Bilirubin 0.4 Aspartate Amino Transf (AST/SGOT) 21 Alanine Aminotransferase (ALT/SGPT) 32 Alkaline Phosphatase 99 Total Protein 7.9 Albumin 3.6 Globulin 4.3 Albumin/Globulin Ratio 0.8 L Lipase 71 Chemistry Comments Medical Decision Making Additional information obtaine: old records Findings Patient presents to the emergency room with dysuria as per HPI. Differentials include but are not limited to kidney stone, urinary tract infection, intra- abdominal infection therefore emergent labs and imaging indicated. CT scan reassuring. Labs reassuring. Urinalysis does show positive crystals and I believe this is what is causing her dysuria. Offered Pyridium however she has declined as she states she has some at home. No indication for antibiotics. I do not suspect ovarian pathology Diff Dx GI Bleed:Consideration: Include: AE fistula, Angiodysplasia, Bleeding diathesis, Blood loss anemia, Carcinoma, Diverticulosis, Diverticulitis, Esophageal varicies, Esophagitis, Gastritis, Gastroenteritis, Inflammatory BD, Yany-Rogers syndrome, Meckel's diverticulum, PUD, Other Diff Dx Pain:Considerations: Include: AAA, -Complete, - Incomplete, -Inevitable, -Missed, -Threatened, Abruptio placentae, Angina/GA, Aortic dissection, Appendicitis, Bowel obstruction, Cholangitis, Cholecystitis, Cholelithasis, Constipation, Diverticular disease, Dysmenorrhea, Ectopic , Esophageal rupture, Esophagitis, Gastritis/PUD, Gastroenteritis, GI hemorrhage, Hernia, Hepatitis, Inflammatory BD, Ischemic bowel, Mass, Ovarian cyst/torsion, Pancreatitis, PID, Porphyria, Trauma, intraabdominal, Urinary obstruction, Urinary tract infection, Urolithiasis, Other Diff Dx N/V/D:Considerations: Include: Appendicitis, Bowel obstruction, Dehydration, DKA, Diarrhea - bacterial, Diarrhea - parasitic, Diarrhea - viral, Diverticulitis, Diverticulosis, Drug toxicity, Electrolyte imbalance, Food poisoning, Gastroenteritis, GE reflux, GI bleed, Hepatitis, Hernia, Hypovolemia, Hypotension, Inflammatory BD, Impaction, Malnutrition, Pancreatitis, , PUD, Renal failure, Urolithiasis, Urinary obstruction, UTI, Other Diff Dx Rectal:Considerations: Include: Fissure, Fistula, Foreign body, Impaction, Perirectal abscess, Rectal prolapse, Subcutaneous abscess, Thrombosed hemorrhoid, Ulcer, UTI, Other Departure Disposition: 01 HOME / SELF CARE / HOMELESS Impression: Primary Impression: Dysuria Condition: Stable Discharge Instructions: Dysuria Referrals: NO PRIMARY CARE PROVIDER (PCP) Signature Scribe Signature: No scribe Attestation: The note accurately reflects work and decisions made by me.Juanjose Monet MD 03/06/25 20:55 JUANJOSE MONET MD Mar 06, 2025 18:07
[2025-03-06] MEDS ORDERED: ketorolac trometh 15mg/ml vial 15 MG/ML ML IM ONE (18:20)
[2025-03-06] MEDS ORDERED: ketorolac trometh 30MG/ML vial 30 MG/ML VIAL IM ONE (18:25)
[2025-03-06] MEDS: ondansetron 4mg rapidly disintigrating tab PO ONE (19:22)
[2025-03-06] MEDS: HYDROcodone/acetaminophen 5mg/325mg tablet PO ONE (19:23)
[2025-03-06] MEDS: ketorolac trometh 15mg/ml vial 15 MG/ML ML IV ONE (20:10)
--- NOTE | 2025-03-06 20:23 | RADIOLOGY REPORT ---
CLINICAL HISTORY: left flank and urethra area pain. hematuria. history of stones TECHNIQUE: CT of the abdomen and pelvis was performed with IV contrast. This exam was performed according to our departmental dose optimization program. Up-to-date CT equipment and radiation dose reduction techniques are utilized as appropriate. CTDI 33 DLP 3421 COMPARISON: CT CT ABDOMEN PELVIS on DOS: 08/19/24, CT CT ABDOMEN PELVIS on DOS: 03/08/24, CT CT ABDOMEN PELVIS on DOS: 12/19/22 FINDINGS: Abdomen/Pelvis: The spleen, liver, pancreas, adrenal glands, and bladder are normal. The uterus is absent. There is a 8 mm nonobstructing left lower pole renal calculus. The renal collecting system and ureters demonstrate no filling defect. The abdominal aorta is normal in course and caliber. There are no significant atherosclerotic calcifications. There is no free intraperitoneal air or fluid. There is no enlarged abdominal or pelvic lymph node. There is no bowel wall thickening or dilatation. The appendix is 9 cm certainty. Is no focal inflammatory process in its expected location. There is a small fat containing umbilical hernia. Other: The imaged lower thorax is unremarkable. No acute osseous abnormality is evident. IMPRESSION: No acute CT abnormality in the abdomen pelvis. Nonobstructing left renal calculi. Cholecystectomy.
--- NOTE | 2025-03-06 20:44 | VASCULAR REPORT ---
EXAM: VASC VL ARTERIAL INDICATION: right upper extremity IV possibly inserted into artery TECHNIQUE: Grayscale and color Doppler sonographic imaging evaluation of the right upper extremity arterial system was performed. Spectral duplex analysis was performed. COMPARISON: None available at the time of dictation. FINDINGS: Right subclavian measures 124 cm/sec. Right axillary measures 77 cm/s. Right brachial measures 100, 111, 60 cm/sec of the proximal, mid, distal segments. Radial and ulnar arteries are patent measuring 94 and 83 cm/sec. Overall no abnormality noted to the right upper extremity arteries. No dissection, arteriovenous fistula or pseudoaneurysm. IMPRESSION: 1. Overall no abnormality noted to the right upper extremity arteries. No dissection, arteriovenous fistula or pseudoaneurysm.
[2025-03-06 21:16] VITALS: BP 112/58; PULSE 87; RESP 17; TEMP 98.2; O2SAT 98
== END 2025-03-06 21:18 | disposition home or self-care (01) ==
LOC: ER 14:58
DX: R30.0 Dysuria (principal); N20.0 Calculus of kidney; F41.9 Anxiety disorder, unspecified; F32.A Depression, unspecified; N18.9 Chronic kidney disease, unspecified; I25.2 Old myocardial infarction; G89.29 Other chronic pain; Z88.0 Allergy status to penicillin; Z88.1 Allergy status to other antibiotic agents; Z88.2 Allergy status to sulfonamides; Z91.040 Latex allergy status; Z87.442 Personal history of urinary calculi; Z90.49 Acquired absence of other specified parts of digestive tract; Z90.721 Acquired absence of ovaries, unilateral; Z88.8 Allergy status to other drugs, medicaments and biological substances; Z79.899 Other long term (current) drug therapy
CPT/HCPCS: 36415; 74177; 80053; 81001; 81025; 83690; 85025; 93931; 96374; 99285; A6258; J1885; Q9967